=== PATIENT | female | born 1960 | race Caucasian/White ===

== ENCOUNTER → 2017-04-04 | Outpatient (REF) | payer OTHER ==
[2017-04-04 13:17] LABS: BASO # 0.1 10^3/uL (0.0-0.2); BASO % 0.9 % (0.0-1.0); EOS # 0.2 10^3/uL (0.0-0.50); EOS % 1.5 % (0.0-3.0); HEMOGLOBIN 13.5 g/dl (12.0-16.0); IMMATURE GRANULOCYTE # 0.1 10^3/uL (0-0); IMMATURE GRANULOCYTE % 0.8 % (0-0); LYMPH # 3.2 10^3/uL (1.5-4.5); LYMPH % 27.7 % (24.0-44.0); MEAN CORPUSCULAR HEMOGLOBIN 29.7 pg (27.0-33.0); MEAN CORPUSCULAR HGB CONC 32.1 g/dl (32.0-36.5); MEAN CORPUSCULAR VOLUME 92.3 fl (80.0-96.0); MONO # 0.9 10^3/uL (0.0-0.8); MONO % 7.6 % (0.0-5.0); NEUTROPHILS # 7.2 10^3/uL (1.8-7.7); NEUTROPHILS % 61.5 % (36.0-66.0); PLATELET COUNT, AUTOMATED 392 10^3/uL (150-450); RED BLOOD COUNT 4.55 10^6/uL (4.00-5.40); RED CELL DISTRIBUTION WIDTH 12.9 % (11.5-14.5); WHITE BLOOD COUNT 11.7 10^3/uL (4.0-10.0)
[2017-04-04 13:42] LABS: ALBUMIN 4.1 GM/DL (3.2-5.2); ALBUMIN/GLOBULIN RATIO 1.37 (1.00-1.93); ALKALINE PHOSPHATASE 88 U/L (45-117); ALT/SGPT 31 U/L (12-78); AMYLASE 37 U/L (25-115); ANION GAP 10 MEQ/L (8-16); AST/SGOT 18 U/L (7-37); BILIRUBIN,TOTAL 0.3 MG/DL (0.2-1.0); BLOOD UREA NITROGEN 8 MG/DL (7-18); CALCIUM LEVEL 9.6 MG/DL (8.5-10.1); CARBON DIOXIDE LEVEL 27 MEQ/L (21-32); CHLORIDE LEVEL 105 MEQ/L (98-107); CREATININE FOR GFR 0.61 MG/DL (0.55-1.02); GLOMERULAR FILTRATION RATE > 60.0 (>51); GLUCOSE, FASTING 86 MG/DL (70-105); LIPASE 119 U/L (73-393); SODIUM LEVEL 142 MEQ/L (136-145); TOTAL PROTEIN 7.1 GM/DL (6.4-8.2)
== END ==
LOC: M SFHCCLAY 08:14
DX: R19.7 Diarrhea, unspecified (principal)

== ENCOUNTER → 2019-03-19 | Outpatient (CLI) | payer BC ==
--- NOTE | 2019-03-19 15:46 | REP ---
Clinical: Solitary pulmonary nodule. Technique: Axial noncontrast images from the thoracic inlet to the upper abdomen with coronal and sagittal re-formations. Comparison: None available. Findings: A subtle nodular density measuring approximately 1.8 cm at the right lung base inseparable from the diaphragmatic surface is suggested. Remainder of lung tello are clear. No further consolidation, nodule or mass. No pleural effusion. Tracheobronchial tree is patent. No obvious adenopathy. Mediastinum demonstrates normal thoracic aorta, pulmonary vasculature and heart/pericardium. Surrounding musculoskeletal structures are intact. Impression: Subtle nodular density at the right base is suspected. No prior examination is available for comparison. Electronically Signed by Canelo Parker MD 03/19/2019 03:38 P
== END ==
LOC: M RAD 14:01
PROVIDERS: ATTEND Internal Medicine Pulmonary Disease
DX: R91.1 Solitary pulmonary nodule (principal)

== ENCOUNTER → 2019-04-13 | Outpatient (CLI) | payer BC ==
--- NOTE | 2019-04-21 09:47 | REP ---
PET/CT: History: Solitary pulmonary nodule. This study is acquired on April 13, 2019 and is presented to me for interpretation on April 21, 2019. The reason for the delay is not known. Comparisons: Comparison chest CT study March 19, 2019 and March 04, 2019. TECHNIQUE: 58 minutes following the intravenous injection of a 8.20 mCi dose of F-18 FDG, three-dimensional PET scintigraphy is acquired from the skull base to the proximal thighs. Triplanar noncontrast CT scanning is acquired through the same anatomic range for attenuation correction, and image registration with scan parameters optimized to minimize radiation exposure to the patient. PET scintigraphy and CT datasets were fused and displayed on a workstation with multiplanar and projection display capability. PET/CT Findings: The spiculated nodule seen on recent CT study in the right lower lobe is hypermetabolic. Maximum standard uptake value within it is 3.17. There is no other abnormal pulmonary parenchymal hypermetabolic uptake. No hilar or mediastinal hypermetabolic uptake is seen. In the abdomen and pelvis there is normal hepatic, splenic, gastrointestinal, and genitourinary FDG accumulation. No abnormal adrenal uptake is seen. No abnormal abdominal or pelvic uptake is observed. Head and neck soft tissues are unremarkable. Impression: The spiculated nodule in the right lower lobe is mildly hypermetabolic, maximum S U V value 3.17. No other abnormal hypermetabolic uptake is appreciated. Electronically Signed by Otoniel Ulloa MD 04/21/2019 09:40 A
== END ==
LOC: M PLARAD 09:25
PROVIDERS: ATTEND Internal Medicine Pulmonary Disease
DX: R91.1 Solitary pulmonary nodule (principal)
CPT/HCPCS: 78815; A9552

== ENCOUNTER → 2019-06-03 | Outpatient (CLI) | payer BC ==
[~2019-06-03] MED LIST: ADVI200T17 PO; ATIV1TAB10 PO; ATOR1TAB21 PO; CELE40TA PO; GABA-1171 PO; NICO14DI3 TOP; PRIL20TA2 PO; VITA50005 PO; WELLTAB38 PO; [UNRECOGNIZED DRUG - OTHER] PO
[2019-06-03 11:26] LABS: HEMATOCRIT 39.3 % (36.0-47.0); HEMOGLOBIN 12.9 g/dl (12.0-15.5); MEAN CORPUSCULAR HEMOGLOBIN 30.7 pg (27.0-33.0); MEAN CORPUSCULAR HGB CONC 32.8 g/dl (32.0-36.5); MEAN CORPUSCULAR VOLUME 93.6 fl (80.0-96.0); PLATELET COUNT, AUTOMATED 348 10^3/uL (150-450); WHITE BLOOD COUNT 9.9 10^3/uL (4.0-10.0)
[2019-06-03 11:29] LABS: ABG BASE EXCESS -0.4 (-2.0-2.0); ABG HCO3 23.1 MEQ/L (22.0-26.0); ABG O2 SATURATION 96.7 % (95.0-99.0); ABG PARTIAL PRESSURE CO2 34.1 mmHg (35.0-45.0); ABG STANDARD HCO3 24.1 MEQ/L (22.0-26.0); ABG TOTAL CO2 24.1 MEQ/L (22.0-29.0); ABG pH (ARTERIAL) 7.448 UNITS (7.350-7.450)
[2019-06-03 11:37] LABS: INR 0.95; PROTHROMBIN TIME 12.4 SECONDS (11.8-14.0)
[2019-06-03 11:38] LABS: PARTIAL THROMBOPLASTIN TIME 29.5 SECONDS (25.0-38.4)
[2019-06-03 11:54] LABS: BLOOD UREA NITROGEN 21 MG/DL (7-18); CALCIUM LEVEL 9.3 MG/DL (8.5-10.1); CARBON DIOXIDE LEVEL 30 MEQ/L (21-32); CHLORIDE LEVEL 107 MEQ/L (98-107); CREATININE FOR GFR 0.77 MG/DL (0.55-1.30); GLOMERULAR FILTRATION RATE > 60.0 (>51); GLUCOSE, FASTING 83 MG/DL (70-100); POTASSIUM SERUM 4.3 MEQ/L (3.5-5.1); SODIUM LEVEL 139 MEQ/L (136-145)
--- NOTE | 2019-06-03 12:59 | REP ---
CHEST X-RAY: TWO VIEWS. HISTORY: Right lobe abnormality. COMPARISON STUDY: Chest CT study March 19, 2019. FINDINGS: The lungs are symmetrically aerated. Pleural angles are sharp. Heart is not enlarged. There are degenerative changes in the thoracic spine. Pulmonary vasculature is not increased. No new infiltrate is seen. The known spiculated density in the right lower lobe above the right diaphragm is just barely visible on the PA view. It is better seen on CT scanning. IMPRESSION: The right lower lobe opacity seen on recent CT study is just visible on the PA view. Otherwise no active disease. Electronically Signed by Otoniel Ulloa MD 06/03/2019 01:13 P
--- NOTE | 2019-06-05 00:38 | ECGEPIP ---
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
== END ==
LOC: M ADMPAT 10:43
PROVIDERS: ATTEND Thoracic Surgery (Cardiothoracic Vascular Surgery)
DX: R91.8 Other nonspecific abnormal finding of lung field (principal)

== ENCOUNTER 2019-06-08 07:22 | Inpatient (IN) | payer BC ==
[2019-06-08] VITALS (26 sets, daily range): BP systolic 93–153; BP diastolic 56–82
[~2019-06-08] VITALS: Ht 157.5 cm; Wt 75.1 kg
[~2019-06-08 07:22] MED LIST changes: +ACETAMINOPHEN 1000MG 100ML IV BTL (OFIRMEV) (J0131 PER 10MG) As Ordered ONE; +KETOROLAC 60 MG/2 ML VIAL (J1885) As Ordered ONE; +LIDOCAINE 1% MDV 20ML VIAL SQ PRN; +LIDOCAINE 2% INJ 100 MG/5 ML SDV (FOR ANES.) As Ordered ONE; +LR 1,000 ML IV ONE; +MUPIROCIN 2% OINT 22 GM TUBE TOP ONE; +ONDANSETRON 4MG/2ML VIAL (J2405) As Ordered ONE; +ROCURONIUM BROMIDE 50 MG/5 ML VIAL As Ordered ONE; +VANCOMYCIN HCL 1,000 MG, VIAL MATE ADAPTER 1 EACH in D5W 250 ML IV ONE; +dexameTHASONE 4 MG/ML 1ML VIAL (J1100) As Ordered ONE; +propofoL 200 MG/20 ML VIAL As Ordered ONE
[2019-06-08] MEDS ORDERED: BUPIVACAINE LIPOSOME/PF 1.3% 20ML VIAL (13.3MG/ML)(EXPAREL)(C9290 PER1MG) As Ordered ONE (07:23)
[2019-06-08] MEDS ORDERED: MUPIROCIN 2% OINT 22 GM TUBE As Ordered ONE (07:23)
[2019-06-08] MEDS ORDERED: BUPIVACAINE HCL 0.5% 10ML VIAL As Ordered ONE (07:23)
[2019-06-08] MEDS ORDERED: CETACAINE SPRAY 5GM As Ordered ONE (07:44)
[2019-06-08] MEDS ORDERED: fentaNYL 100 MCG/2 ML INJECTION (J3010) As Ordered ONE (08:59)
[2019-06-08] MEDS ORDERED: MIDAZOLAM INJ 2 MG/2 ML VIAL (J2250) As Ordered ONE ×2 (08:59→10:12)
[2019-06-08] MEDS: MIDAZOLAM INJ 2 MG/2 ML VIAL (J2250) IV SCH ×2 (09:04→09:09)
[2019-06-08] MEDS: fentaNYL 100 MCG/2 ML INJECTION (J3010) IV SCH ×2 (09:04→09:15)
[2019-06-08] MEDS ORDERED: fentaNYL 250 MCG/5 ML INJECTION (J3010) As Ordered ONE (09:42)
[2019-06-08] MEDS ORDERED: METOCLOPRAMIDE INJ 10MG/2ML VIAL (J2765) IV PRN ×2 (10:00→14:30)
[2019-06-08] MEDS ORDERED: WALLBOXKEY XX PRN (10:00)
[2019-06-08] MEDS ORDERED: FENTANYL/BUPIVACAINE/NACL BAG 250 ML EPIDURAL SCH (10:00)
[2019-06-08] MEDS ORDERED: EPIDURAL/PCA KEYS XX PRN (10:00)
[2019-06-08] MEDS ORDERED: NALOXONE INJ 0.4 MG/1 ML VIAL (J2310) IV PRN (10:00)
[2019-06-08] MEDS ORDERED: ONDANSETRON 4MG/2ML VIAL (J2405) IV PRN ×3 (10:00→14:30)
[2019-06-08] MEDS ORDERED: BUPIVACAINE HCL 0.25% 30ML VIAL As Ordered ONE (10:43)
[2019-06-08] MEDS ORDERED: ROCURONIUM BROMIDE 50 MG/5 ML VIAL As Ordered ONE ×2 (11:02→12:41)
[2019-06-08] MEDS ORDERED: SUGAMMADEX SODIUM 500 MG/5 ML VIAL (BRIDION) As Ordered ONE (12:02)
[2019-06-08] MEDS ORDERED: PHENYLephrine HCL 500 MCG/5 ML (100MCG/ML) SYRINGE (J2370) As Ordered ONE (12:03)
[2019-06-08] MEDS ORDERED: HYDROmorphone HCL 2 MG/ML 1ML VIAL (J1170) As Ordered ONE (12:43)
[2019-06-08 13:21] LABS: APPEARANCE, URINE CLEAR (CLEAR); BILIRUBIN, URINE AUTO NEGATIVE (NEGATIVE); BLOOD, URINE BLOOD NEGATIVE (NEGATIVE); COLOR, URINE YELLOW (YELLOW); GLUCOSE, URINE (UA) AUTO NEGATIVE (NEGATIVE); KETONE, URINE AUTO NEGATIVE (NEGATIVE); LEUKOCYTE ESTERASE, URINE AUTO NEGATIVE (NEGATIVE); NITRITE, URINE AUTO NEGATIVE (NEGATIVE); PROTEIN, URINE AUTO NEGATIVE (NEGATIVE); UROBILINOGEN, URINE AUTO 0.2 mg/dL (0.0-2.0)
[2019-06-08 13:22] LABS: RBC, URINE AUTO 0 /HPF (0-3); SQUAMOUS EPITHELIAL CELL UR AU 0 /HPF (0-6); WBC, URINE AUTO 0 /HPF (0-3)
[2019-06-08 13:23] LABS: BACTERIA, URINE AUTO NEGATIVE (NEGATIVE)
[2019-06-08] MEDS ORDERED: ACETAMINOPHEN TAB 650MG DOSE (2X325MG) PO PRN (14:15)
[2019-06-08] MEDS ORDERED: LEVALBUTEROL 1.25 MG/0.5 ML CONCENTRATE NEB NEB PRN (14:15)
[2019-06-08] MEDS ORDERED: BISACODYL 10 MG SUPP PR PRN (14:15)
[2019-06-08] MEDS ORDERED: MEPERIDINE INJ 25 MG/ML VIAL (J2175) IV PRN (14:30)
[2019-06-08] MEDS ORDERED: fentaNYL 100 MCG/2 ML INJECTION (J3010) IV PRN (14:30)
[2019-06-08] MEDS ORDERED: oxyCODONE 5MG TAB PO PRN (14:30)
[2019-06-08] MEDS ORDERED: LR 1,000 ML IV SCH (14:30)
--- NOTE | 2019-06-08 14:41 | REP ---
Clinical: Status post right lower lobe resection. Findings: Two right-sided chest tubes are identified along with postsurgical changes and mild volume loss. No obvious pneumothorax. The cardiac silhouette is normal. Left hemithorax appears clear. The skeletal structures are grossly intact. Impression: Postsurgical changes involving the right hemithorax. No obvious pneumothorax. Electronically Signed by Canelo Parker MD 06/08/2019 02:33 P
[2019-06-08 14:49] LABS: ABG BASE EXCESS -2.9 (-2.0-2.0); ABG HCO3 23.7 MEQ/L (22.0-26.0); ABG O2 SATURATION 95.7 % (95.0-99.0); ABG PARTIAL PRESSURE CO2 48.8 mmHg (35.0-45.0); ABG PARTIAL PRESSURE O2 85.7 mmHg (75.0-100.0); ABG TOTAL CO2 25.2 MEQ/L (22.0-29.0); ABG pH (ARTERIAL) 7.305 UNITS (7.350-7.450)
[2019-06-08] MEDS ORDERED: KCL 20MEQ IN D5/NS 1000ML 1,000 ML IV SCH (15:00)
[2019-06-08 15:08] LABS: BASO # 0.1 10^3/uL (0.0-0.2); BASO % 0.4 % (0.0-1.0); EOS % 0.1 % (0.0-3.0); HEMATOCRIT 36.9 % (36.0-47.0); HEMOGLOBIN 12.2 g/dl (12.0-15.5); LYMPH # 1.2 10^3/uL (1.5-5.0); LYMPH % 5.5 % (24.0-44.0); MEAN CORPUSCULAR HEMOGLOBIN 30.4 pg (27.0-33.0); MEAN CORPUSCULAR HGB CONC 33.1 g/dl (32.0-36.5); MONO # 0.6 10^3/uL (0.0-0.8); MONO % 2.6 % (0.0-5.0); NEUTROPHILS # 19.4 10^3/uL (1.5-8.5); NEUTROPHILS % 90.6 % (36.0-66.0); PLATELET COUNT, AUTOMATED 345 10^3/uL (150-450); RED BLOOD COUNT 4.01 10^6/uL (4.00-5.40); WHITE BLOOD COUNT 21.4 10^3/uL (4.0-10.0)
[2019-06-08 15:24] LABS: BLOOD UREA NITROGEN 16 MG/DL (7-18); CALCIUM LEVEL 8.4 MG/DL (8.5-10.1); CARBON DIOXIDE LEVEL 27 MEQ/L (21-32); CHLORIDE LEVEL 106 MEQ/L (98-107); CREATININE FOR GFR 0.69 MG/DL (0.55-1.30); GLOMERULAR FILTRATION RATE > 60.0 (>51); GLUCOSE, FASTING 127 MG/DL (70-100); POTASSIUM SERUM 4.1 MEQ/L (3.5-5.1); SODIUM LEVEL 138 MEQ/L (136-145)
[2019-06-08] MEDS: LIDOCAINE 5% (LIDODERM) PATCH TD SCH (17:38)
[2019-06-08] MEDS: KETOROLAC 30 MG/ML VIAL (J1885) IV SCH ×2 (18:30→23:50)
[2019-06-08] MEDS: LEVALBUTEROL 1.25 MG/0.5 ML CONCENTRATE NEB NEB SCH ×2 (20:41→23:59)
[2019-06-08] MEDS: DOCUSATE SODIUM 100 MG CAP PO SCH (21:00)
[2019-06-08] MEDS: VANCOMYCIN HCL 1,000 MG, VIAL MATE ADAPTER 1 EACH in D5W 250 ML IV SCH (21:08)
[2019-06-08] MEDS: HEPARIN SOD (PORCINE) 5000 UNITS/ML VIAL (J1644 PER 1000UNITS) SC SCH (21:09)
[2019-06-09] VITALS (39 sets, daily range): BP systolic 75–129; BP diastolic 42–87
[2019-06-09] MEDS: diphenhydrAMINE INJ 50MG/ML VIAL (J1200) IV PRN ×4 (03:28→22:58)
[2019-06-09] MEDS: BUPIVACAINE/NACL BAG 250 ML EPIDURAL SCH ×2 (04:00→23:09)
[2019-06-09] MEDS: KETOROLAC 30 MG/ML VIAL (J1885) IV SCH ×3 (05:11→18:41)
[2019-06-09 06:34] LABS: ABG BASE EXCESS 1.9 (-2.0-2.0); ABG HCO3 26.1 MEQ/L (22.0-26.0); ABG O2 SATURATION 98.9 % (95.0-99.0); ABG PARTIAL PRESSURE O2 136.8 mmHg (75.0-100.0); ABG STANDARD HCO3 26.2 MEQ/L (22.0-26.0); ABG TOTAL CO2 27.3 MEQ/L (22.0-29.0); ABG pH (ARTERIAL) 7.443 UNITS (7.350-7.450)
[2019-06-09 07:06] LABS: BASO # 0.1 10^3/uL (0.0-0.2); BASO % 0.3 % (0.0-1.0); EOS % 0.1 % (0.0-3.0); HEMOGLOBIN 10.9 g/dl (12.0-15.5); LYMPH # 3.3 10^3/uL (1.5-5.0); LYMPH % 23.3 % (24.0-44.0); MEAN CORPUSCULAR HEMOGLOBIN 30.7 pg (27.0-33.0); MONO # 1.2 10^3/uL (0.0-0.8); NEUTROPHILS # 9.7 10^3/uL (1.5-8.5); NEUTROPHILS % 67.7 % (36.0-66.0); PLATELET COUNT, AUTOMATED 269 10^3/uL (150-450); RED BLOOD COUNT 3.55 10^6/uL (4.00-5.40); WHITE BLOOD COUNT 14.3 10^3/uL (4.0-10.0)
[2019-06-09 07:31] LABS: BLOOD UREA NITROGEN 10 MG/DL (7-18); CALCIUM LEVEL 8.3 MG/DL (8.5-10.1); CARBON DIOXIDE LEVEL 26 MEQ/L (21-32); CHLORIDE LEVEL 103 MEQ/L (98-107); CREATININE FOR GFR 0.57 MG/DL (0.55-1.30); GLOMERULAR FILTRATION RATE > 60.0 (>51); GLUCOSE, FASTING 95 MG/DL (70-100); POTASSIUM SERUM 4.1 MEQ/L (3.5-5.1); SODIUM LEVEL 136 MEQ/L (136-145)
[2019-06-09] MEDS: LEVALBUTEROL 1.25 MG/0.5 ML CONCENTRATE NEB NEB SCH ×3 (07:32→19:45)
[2019-06-09] MEDS: PERCOCET 5MG/325MG TAB PO PRN ×5 (08:11→22:42)
[2019-06-09] MEDS: MOM 30ML SUSPENSION UDC PO SCH (09:00)
--- NOTE | 2019-06-09 09:03 | REP ---
Clinical: Status post right lower lobe resection. Technique: PA and lateral. Comparison: 06/08/2019. Findings: Postsurgical changes involving the right hemithorax with right basilar atelectasis and elevation to the right hemidiaphragm. Right chest tube in stable position. Left hemithorax appears clear and within normal limits. Visualized mediastinum and cardiac silhouette appear normal. Impression: Postsurgical changes involving the right hemithorax with volume loss, mild right basilar atelectasis. Electronically Signed by Canelo Parker MD 06/09/2019 08:54 A
[2019-06-09] MEDS: VANCOMYCIN HCL 1,000 MG, VIAL MATE ADAPTER 1 EACH in D5W 250 ML IV SCH ×2 (09:34→20:28)
[2019-06-09] MEDS: PANTOPRAZOLE 40MG TAB (PROTONIX) PO SCH (09:35)
[2019-06-09] MEDS: DOCUSATE SODIUM 100 MG CAP PO SCH ×2 (09:35→20:27)
[2019-06-09] MEDS: HEPARIN SOD (PORCINE) 5000 UNITS/ML VIAL (J1644 PER 1000UNITS) SC SCH ×2 (09:36→20:27)
[2019-06-09] MEDS: LIDOCAINE 5% (LIDODERM) PATCH TD SCH (09:37)
[2019-06-09] MEDS ORDERED: MORPHINE 2 MG/ML 1ML VIAL (J2270) As Ordered ONE (11:04)
[2019-06-09] MEDS ORDERED: MORPHINE 2 MG/ML 1ML VIAL (J2270) IV ONE (11:15)
[2019-06-09] MEDS ORDERED: D5W/0.9% SODIUM CHLORIDE 500 ML IV SCH (11:30)
--- NOTE | 2019-06-09 12:34 | IPN ---
DATE: 06/09/2019 This is now the first postoperative day for Mrs. Mendoza. She had a notable night for pain in her shoulder. The epidural was changed to double strength bupivacaine and I am now supplementing her pain control with narcotic analgesia, both oral and intravenously, and she is better with the intravenous intermittent morphine. Her vital signs show a maximum temperature (t-max) of 99.3 with a heart rate that ranges between 101 and 116 in a sinus rhythm, respiratory rate of 16 to 20 without the use of accessory muscles, who is 93% saturated now on room air, and whose blood pressure is ranging between 100/49 to 75/42. I have given her additional volume for her blood pressure. Her intake and output the past 24 hours has been recorded as 1696 in and 1182 out for a positivity of 500 mL. She has put out 220 mL from the chest tube and there is still a considerable air leak. In the last 12 hours, she has put out 340 mL. PHYSICAL EXAMINATION: LUNGS: Her lungs show equal breath sounds on either side with crackles in the right hemithorax. Percussion notes are full to the diaphragm. CARDIAC EXAM: Without murmurs, clicks, gallops or rubs. I cannot feel her point of maximum impulse (PMI). S1, S2 are normal. ABDOMEN: Soft, nontender. Bowel sounds positive. There is no hepatomegaly. No costovertebral angle tenderness. EXTREMITIES: Show no pretibial edema. No calf tenderness. No differential swelling of the upper extremities. SKIN: Warm, dry and perfused without cyanosis or mottling, including that of the nail beds and knees. NECK: Supple. There is no jugular venous distention. No subcutaneous emphysema. Trachea is midline. MOUTH: Shows her mucous membranes to be pink and moist. Lips and commissures without lesions. There is no thrush. EYES: Show her pupils to be equal and reactive. Extraocular motion intact. Sclerae anicteric. NEUROLOGIC: Shows II through XII intact with gross motor and gross sensation intact. Gait is not tested. PSYCHIATRIC: Shows her to be awake and alert, oriented times three with appropriate mood and affect and conversational. Her chest x-ray today shows her lung fully expanded to the chest wall with obligate volume loss from the lobectomy. The anterior chest tube looks as though it has migrated more inferiorly. I see no infiltrates. Her white count today is 14.3 with a hemoglobin and hematocrit of 10.9 and 33.0 with a platelet count of 269. Differential shows 67% neutrophils, 23% lymphocytes, 8% monocytes. There are no immature forms and no toxic granulations. Her electrolytes are normal with a BUN and creatinine of 10 and 0.57 and a glucose of 95 and a calcium of 8.3. Pathology is still pending. After dictation, I will go and look at the slides this morning. IMPRESSION: 1. Clinica stage I adenocarcinoma. 2. Prior tobacco abuse. 3. Gastroesophageal reflux disease (GERD). 4. Anxiety. 5. Hypertension secondary to the epidural. 6. Problematic pain control in her shoulder. 7. Postoperative air leak. PLAN/DISCUSSION: We are bringing her pain under control with oral and intravenous narcotics. She has no incisional pain. We will continue to encourage lung expansion therapy. For her hypertension, she may need phenylephrine.
[2019-06-09] MEDS ORDERED: PHENYLEPHRINE INJ 10MG/ML VIAL (J2370) As Ordered ONE (13:29)
[2019-06-09] MEDS ORDERED: PHENYLEPHRINE HCL INJ 50 MG in D5W 495 ML IV SCH (14:00)
[2019-06-09] MEDS: MORPHINE 2 MG/ML 1ML VIAL (J2270) IV PRN (15:26)
[2019-06-09] MEDS: ATORVASTATIN 20 MG TAB PO SCH (20:27)
[2019-06-09] MEDS: LORazepam 0.5 MG TAB PO SCH (20:27)
[2019-06-09] MEDS: CitaloPRAM (CeleXA) 20 MG TAB PO SCH (20:27)
[2019-06-10] VITALS (42 sets, daily range): BP systolic 91–137; BP diastolic 50–86
[2019-06-10] MEDS: KETOROLAC 30 MG/ML VIAL (J1885) IV SCH ×4 (00:22→17:48)
[2019-06-10] MEDS: LEVALBUTEROL 1.25 MG/0.5 ML CONCENTRATE NEB NEB SCH ×4 (01:50→19:48)
[2019-06-10] MEDS ORDERED: PHENYLEPHRINE HCL INJ 50 MG in D5W 495 ML IV SCH (02:00)
[2019-06-10 05:07] LABS: BASO # 0.1 10^3/uL (0.0-0.2); BASO % 0.9 % (0.0-1.0); EOS # 0.2 10^3/uL (0.0-0.5); EOS % 1.5 % (0.0-3.0); HEMATOCRIT 33.5 % (36.0-47.0); HEMOGLOBIN 10.7 g/dl (12.0-15.5); LYMPH # 3.4 10^3/uL (1.5-5.0); LYMPH % 21.2 % (24.0-44.0); MEAN CORPUSCULAR HEMOGLOBIN 30.4 pg (27.0-33.0); MEAN CORPUSCULAR HGB CONC 31.9 g/dl (32.0-36.5); MEAN CORPUSCULAR VOLUME 95.2 fl (80.0-96.0); MONO # 1.3 10^3/uL (0.0-0.8); MONO % 7.9 % (0.0-5.0); NEUTROPHILS # 10.9 10^3/uL (1.5-8.5); NEUTROPHILS % 67.5 % (36.0-66.0); PLATELET COUNT, AUTOMATED 297 10^3/uL (150-450); RED BLOOD COUNT 3.52 10^6/uL (4.00-5.40); WHITE BLOOD COUNT 16.2 10^3/uL (4.0-10.0)
[2019-06-10 05:27] LABS: BLOOD UREA NITROGEN 11 MG/DL (7-18); CALCIUM LEVEL 8.6 MG/DL (8.5-10.1); CARBON DIOXIDE LEVEL 26 MEQ/L (21-32); CHLORIDE LEVEL 102 MEQ/L (98-107); CREATININE FOR GFR 0.68 MG/DL (0.55-1.30); GLOMERULAR FILTRATION RATE > 60.0 (>51); GLUCOSE, FASTING 99 MG/DL (70-100); SODIUM LEVEL 136 MEQ/L (136-145)
[2019-06-10] MEDS: PERCOCET 5MG/325MG TAB PO PRN ×4 (06:13→19:57)
[2019-06-10] MEDS: DOCUSATE SODIUM 100 MG CAP PO SCH ×2 (08:29→21:45)
[2019-06-10] MEDS: PANTOPRAZOLE 40MG TAB (PROTONIX) PO SCH (08:29)
[2019-06-10] MEDS: MOM 30ML SUSPENSION UDC PO SCH (08:29)
[2019-06-10] MEDS: GABAPENTIN 100 MG CAP PO SCH (08:29)
[2019-06-10] MEDS: HEPARIN SOD (PORCINE) 5000 UNITS/ML VIAL (J1644 PER 1000UNITS) SC SCH ×2 (08:30→21:45)
[2019-06-10] MEDS: VANCOMYCIN HCL 1,000 MG, VIAL MATE ADAPTER 1 EACH in D5W 250 ML IV SCH (08:30)
[2019-06-10] MEDS: LIDOCAINE 5% (LIDODERM) PATCH TD SCH (08:30)
[2019-06-10] MEDS: NICOTINE 14 MG/24 HR TRANSDERMAL TOP SCH (08:31)
--- NOTE | 2019-06-10 09:17 | REP ---
Chest x-ray: Two views. History: Postop right lower lobectomy. Comparison chest x-ray: June 09, 2019 and June 08, 2019. Findings: The right chest tube remains in place at the base. Extrathoracic soft tissue gas is visible today along the right lateral chest wall from supraclavicular soft tissues to the right flank. There is a tiny sliver of apical pleural air believed to be visible at the right apex. There is discoid atelectasis adjacent to the chest tube in the right base. Right hemidiaphragm is elevated as before. The left lung is clear. An epidural catheter remains in place. A second right-sided chest tube remains in place medially. Impression: Tiny sliver of right apical pleural air. Extrathoracic soft tissue emphysema has developed. There is plate-like atelectasis in the right base. Electronically Signed by Otoniel Ulloa MD 06/10/2019 09:09 A
[2019-06-10] MEDS: MORPHINE 2 MG/ML 1ML VIAL (J2270) IV PRN ×3 (11:13→22:11)
--- NOTE | 2019-06-10 12:40 | IPN ---
DATE: 06/10/2019 This is now the second postoperative day for Mrs. Mendoza status post a right lower lobectomy. She is feeling a lot better today. Her pain in her shoulder is much better today. She is not experiencing any incisional pain. Her vital signs show a maximum temperature (T-max) of 98.9 with a heart rate that ranges between 111 and 93 and in sinus rhythm with a blood pressure that is ranging between 93/61 to 128/86. She required phenylephrine a lot last night and fluid boluses. Her respiratory rate is 18-20 without the use of accessory muscles and she is 94-95% saturated on 2 liters of nasal cannula. Her intake and output over the past 24 hours has been recorded as 4267 in and 2455 out for a positivity of 1800 mL. She has put out 655 mL from the chest tube and there is still a considerable air leak. Weight today is 73.5 kg compared to 72 kg the day before. She has put out 1800 in urine output. On physical examination, her right lung shows noises and squeaks consistent with air leak. The left lung shows normal vesicular sounds with some inspiratory wheezing at the very end of inspiration. Percussion note is full to the diaphragm. Her cardiac exam is without murmurs, clicks, gallops or rubs. I cannot feel her point of maximum impulse (PMI). S1 and S2 are normal. Abdomen is soft and nontender. Bowel sounds are positive. She has had flatus but no bowel movement yet. There is no hepatomegaly. No costovertebral angle (CVA) tenderness. Extremities show trace pretibial edema with no calf tenderness. No differential swelling of the upper extremities. Skin is warm, dry and perfused without cyanosis or mottling including that of the nail beds and knees. Neck is supple. There is no jugular venous distention. No subcutaneous emphysema. Trachea is midline. Mouth shows her mucous membranes to be pink and moist. Lips and commissures are without lesions. There is no thrush. Eyes show her pupils to be equal and reactive. Extraocular movements intact. Sclerae nonicteric. Neurologic shows II-XII intact along with gross motor and gross sensation intact. Gait is not tested. Psychiatric showed her to be awake, alert and oriented times three with appropriate and affect and conversational. Her white count today is 16.2 up from 14.3 yesterday. Hemoglobin and hematocrit 10.7 and 36.5, stable from yesterday with a platelet count of 297 stable. Differential shows 67% neutrophils, 71% lymphocytes, 10% monocytes. There are no immature forms or toxic granulations. Her electrolytes are normal today with a BUN and creatinine of 11 and 0.68. There are no blood gases on her today with her blood gases being almost normal yesterday. It should be noted that urinalysis preoperatively was negative for leukocyte esterase. Her chest x-ray today shows her lung fully expanded to the chest wall. There is obligate volume loss from the lobectomy. There is some subcutaneous emphysema in the lateral chest wall. Chest tube is noted in an good place, while the anterior one is a little more inferior than I would want it to be. I have gone over pathology with Dr. Rosa. It looks to be a papillary adenocarcinoma but all nodes negative. This then puts her at stage I. I have not got the exact measurements from the tumor yet so I cannot detail stage her as of yet. It is definitely going to be stage I, however. The only choice will be between stage I A and stage I B. IMPRESSION: 1. Stage I B adenocarcinoma right lower lobe. 2. Postoperative day #2 status post lower lobectomy. 3. Prior tobacco abuse. 4. Gastroesophageal reflux disease, GERD). 5. Anxiety. 6. Hypotension secondary to epidural. 7. Problematic pain control with her shoulder, improved. 8. Postoperative air leak, smaller. PLAN AND DISCUSSION: I will continue her on suction today. As she is still on phenylephrine, I will not diurese her. I will inform her and her later today of the stage.
[2019-06-10] MEDS: BUPIVACAINE/NACL BAG 250 ML EPIDURAL SCH (15:40)
[2019-06-10] MEDS: diphenhydrAMINE INJ 50MG/ML VIAL (J1200) IV PRN ×2 (16:27→21:44)
--- NOTE | 2019-06-10 16:39 | RO ---
DATE OF PROCEDURE: 06/08/2019 PREPROCEDURE DIAGNOSIS: Right lower lobe lung mass. POSTPROCEDURE DIAGNOSIS: Right lower lobe adenocarcinoma. PROCEDURE: Thoracoscopy, attempted wedge resection followed by thoracotomy, right lower lobectomy, mediastinal lymphadenectomy, five-level rib block, bronchoscopy. SURGEON: Augie Cristina MD CLIENT DEVELOPMENT MANAGER: ANESTHESIA: FINDINGS: I could not clearly make out the lesion on thoracoscopic examination and, therefore, converted to thoracotomy. The lesion was identified by palpating it and was wedged out and was found to be adenocarcinoma by frozen section. We, therefore, proceeded to undertake a right lower lobectomy and a mediastinal node dissection including the paratracheal nodes and subcarinal nodes as well as hilar nodes. She had complete fissures. There was some dissection towards the hilum of the lower lobe pulmonary artery. DESCRIPTION OF PROCEDURE: Under satisfactory general anesthesia and single-lumen tube endotracheal intubation, the bronchoscope was placed into the tracheobronchial tree. Bronchoscopy revealed a normal branching tracheobronchial tree with minimal secretions. There was quite a lot of secretions in the lower lobe basilar segment. This was suctioned aspirated. There were no endobronchial lesions. Patient was then reintubated with a double-lumen tube. Right lung was isolated, and patient was then turned into the left lateral decubitus position. She was prepped and draped in the usual sterile fashion, and a thoracotomy incision was made posterolaterally. Latissimus dorsi was divided. Serratus anterior was spared. Chest was entered through the 5th intercostal space. The complete fissure lower lobe and the confluence of fissures were complete. Attention was turned to the base on the right lower lobe, where the lesion could be palpated, isolated, and wedged out. The above findings were noted, and preparations were made to proceed with a lobectomy. The major fissure and confluence of fissures were dissected to find the lower lobe pulmonary artery. The posterior mediastinal pleura was dissected, and the posterior major fissure was completed by use of an [place] stapler. The lower lobe pulmonary artery could then be dissected out and freed up and a vascular staple placed across it. The inferior pulmonary vein was then located, and the inferior pulmonary ligament was divided. The superior pulmonary vein was also identified. Again, the posterior mediastinal pleura was dissected and freed up, and a clamp could be placed between the superior pulmonary vein and the inferior pulmonary vein. The pulmonary vein was surrounded by a vessel loop and then stapled with a vascular stapler. This then left the bronchus. The major fissure was adherent to a portion of the middle lobe. The middle lobe bronchus was identified, and eventually the major fissure was completed by use of an [place] 60 stapler. This then left the bronchus, which was then stapled with the [place] 4.8 stapling device. Bronchus was tested to 30 cm of water and was found to be intact. After completing the lobectomy, the subcarinal packet of lymph nodes was dissected and sent for separate pathological examination. Likewise, the azygos vein was divided and the superior mediastinal pleura was incised and all the paratracheal mediastinal nodes were then dissected. No mediastinal space lymphatic leak was detected. Hemostasis was achieved by use of the Harmonic scalpel to seal the lymphatics. Mediastinal space was filled with Tisseel glue as were the cut vessels and bronchus. A five-level rib block consisting of Exparel and 0.5% Marcaine was then injected. Two chest tubes were placed, #24s, curved and straights, both anteriorly and posteriorly. Pericostal sutures were placed, and the lung was reinflated. Tisseel glue was placed on the parenchymal leaks. When testing the bronchus, the parenchyma that was leaking was noted and was oversewn with running #3-0 Vicryl suture. This was to appose tissue. The extrathoracic muscles were then reapproximated by use of running #0 Vicryl suture, the subcutaneous tissues by use of #3-0 Vicryl suture, and the skin by use of #4-0 Monocryl subcuticular suture. Patient tolerated the procedure well and left the operating room in satisfactory condition for the recovery room.
[2019-06-10] MEDS: LORazepam 0.5 MG TAB PO SCH (21:45)
[2019-06-10] MEDS: CitaloPRAM (CeleXA) 20 MG TAB PO SCH (21:45)
[2019-06-10] MEDS: ATORVASTATIN 20 MG TAB PO SCH (21:45)
[2019-06-11] VITALS (11 sets, daily range): BP systolic 92–138; BP diastolic 54–80
[2019-06-11] MEDS: LEVALBUTEROL 1.25 MG/0.5 ML CONCENTRATE NEB NEB SCH ×4 (00:53→20:13)
[2019-06-11] MEDS: PERCOCET 5MG/325MG TAB PO PRN ×5 (00:57→19:55)
[2019-06-11] MEDS: KETOROLAC 30 MG/ML VIAL (J1885) IV SCH ×4 (00:57→18:07)
[2019-06-11] MEDS: diphenhydrAMINE INJ 50MG/ML VIAL (J1200) IV PRN ×4 (02:51→20:28)
[2019-06-11 04:21] LABS: BASO # 0.1 10^3/uL (0.0-0.2); BASO % 0.5 % (0.0-1.0); EOS # 0.4 10^3/uL (0.0-0.5); EOS % 2.9 % (0.0-3.0); HEMATOCRIT 30.9 % (36.0-47.0); LYMPH # 2.6 10^3/uL (1.5-5.0); LYMPH % 17.1 % (24.0-44.0); MEAN CORPUSCULAR HEMOGLOBIN 30.6 pg (27.0-33.0); MEAN CORPUSCULAR HGB CONC 32.4 g/dl (32.0-36.5); MEAN CORPUSCULAR VOLUME 94.5 fl (80.0-96.0); MONO # 1.2 10^3/uL (0.0-0.8); MONO % 8.2 % (0.0-5.0); NEUTROPHILS # 10.6 10^3/uL (1.5-8.5); NEUTROPHILS % 70.1 % (36.0-66.0); PLATELET COUNT, AUTOMATED 266 10^3/uL (150-450); RED BLOOD COUNT 3.27 10^6/uL (4.00-5.40); WHITE BLOOD COUNT 15.1 10^3/uL (4.0-10.0)
[2019-06-11 04:43] LABS: BLOOD UREA NITROGEN 11 MG/DL (7-18); CALCIUM LEVEL 8.3 MG/DL (8.5-10.1); CARBON DIOXIDE LEVEL 27 MEQ/L (21-32); CHLORIDE LEVEL 103 MEQ/L (98-107); CREATININE FOR GFR 0.65 MG/DL (0.55-1.30); GLOMERULAR FILTRATION RATE > 60.0 (>51); GLUCOSE, FASTING 104 MG/DL (70-100); POTASSIUM SERUM 4.4 MEQ/L (3.5-5.1); SODIUM LEVEL 136 MEQ/L (136-145)
[2019-06-11] MEDS ORDERED: fentaNYL 100 MCG/2 ML INJECTION (J3010) IV SCH (06:00)
[2019-06-11] MEDS ORDERED: MIDAZOLAM INJ 2 MG/2 ML VIAL (J2250) IV SCH (06:00)
--- NOTE | 2019-06-11 08:01 | REP ---
CHEST X-RAY: TWO VIEWS. HISTORY: Postop right lower lobectomy. FINDINGS: Two right-sided chest tubes remain in place at the base. There is some mild linear plate-like atelectasis in the perihilar region and base on the right. This is unchanged. Tiny sliver of apical pleural air persists on the right. There is extrathoracic soft tissue emphysema somewhat decreased from yesterday's radiograph. The left lung remains clear. An epidural catheter and monitoring electrodes are seen. IMPRESSION: No change from the previous day's radiographs. Electronically Signed by Otoniel Ulloa MD 06/11/2019 08:39 A
[2019-06-11] MEDS: GABAPENTIN 100 MG CAP PO SCH (09:03)
[2019-06-11] MEDS: DOCUSATE SODIUM 100 MG CAP PO SCH ×2 (09:04→21:57)
[2019-06-11] MEDS: MOM 30ML SUSPENSION UDC PO SCH (09:04)
[2019-06-11] MEDS: NICOTINE 14 MG/24 HR TRANSDERMAL TOP SCH (09:04)
[2019-06-11] MEDS: PANTOPRAZOLE 40MG TAB (PROTONIX) PO SCH (09:04)
[2019-06-11] MEDS: LIDOCAINE 5% (LIDODERM) PATCH TD SCH (09:05)
[2019-06-11] MEDS: HEPARIN SOD (PORCINE) 5000 UNITS/ML VIAL (J1644 PER 1000UNITS) SC SCH ×2 (09:05→21:57)
[2019-06-11] MEDS: BUPIVACAINE/NACL BAG 250 ML EPIDURAL SCH (09:17)
[2019-06-11] MEDS: MORPHINE 2 MG/ML 1ML VIAL (J2270) IV PRN ×2 (10:50→22:15)
[2019-06-11] MEDS: buPROPion **XL** TABLET 150MG (WELLBUTRIN XL) PO SCH (11:09)
[2019-06-11] MEDS ORDERED: FUROSEMIDE 40 MG/4 ML VIAL (J1940) IV ONE (11:30)
[2019-06-11] MEDS ORDERED: MIDAZOLAM INJ 2 MG/2 ML VIAL (J2250) As Ordered ONE (12:08)
[2019-06-11] MEDS ORDERED: fentaNYL 100 MCG/2 ML INJECTION (J3010) As Ordered ONE (12:08)
--- NOTE | 2019-06-11 12:22 | IPN ---
DATE: 06/11/2019 Ms. Mendoza is in a considerable amount of pain this morning. She is complaining of incisional pain and chest tube insertion site pain. She just cannot get comfortable. She has no hematuria as this looks clinically mimicking renal colic, however, she is very tender to touch just below the incision and at the chest tube insertion site. Her vital signs show a maximum temperature (T-max) of 97.9. with a heart rate that ranges between 97 and 105 in a sinus rhythm, a respiratory rate of 18 to 20 without the use of accessory muscles, who is 94% to 93% saturated on 2 liters nasal cannula and whose blood pressure is ranging between 121/73 to 109/80. Her intake and output over the past 24 hours has been recorded as 1891 in and 2210 out for a negativity of 319 mL. She has put 465 mL out the chest tube and there is still an air leak. Weight today is 74.6 kg compared to 73.6 kg yesterday. On physical examination, she has some rhonchi in the right hemithorax with normal vesicular sounds on the left. Percussion note is full to the diaphragm. Cardiac exam is without murmurs, clicks, gallops or rubs. I cannot feel her point of maximum impulse (PMI). S1 and S2 are normal. Abdomen is soft and nontender. Bowel sounds are positive. There is no hepatomegaly. There is costovertebral angle (CVA) tenderness on the right referable to the chest tubes and the incision. Her extremities show no pretibial edema and no calf tenderness. No differential swelling of the upper extremities. Skin is warm, dry and perfused without cyanosis or mottling including that of the nail beds and knees. Neck is supple. There is no jugular venous distention. No subcutaneous emphysema. Trachea is midline. Mouth shows her mucous membranes to be pink and moist. Lips and commissures are without lesions. There is no thrush. Eyes show her pupils to be equal and reactive. Extraocular movements intact. Sclerae nonicteric. Neurologic shows II-XII intact along with gross motor and gross sensation intact. Gait is not tested. Psychiatric showed her to be awake, alert and oriented times three with appropriate and affect and conversational. Her white count today is 15.1 which is down from 16.2 yesterday. Hemoglobin and hematocrit are 10.0 and 30.9, slightly down from 10.7 and 33.5 yesterday, probably secondary to hemodilution. Platelet count is 266. Differential shows 70% neutrophils, 17% lymphocytes, 8% monocytes. There are no immature forms and no toxic granulations. Her chemistries today showed normal electrolytes with a BUN and creatinine of 11 and 0.61, glucose of 104 and a calcium of 8.3. Her chest x-ray today shows her lung fully expanded to the chest wall. There is some minimal subcutaneous emphysema on the lateral chest wall. The chest tube placement is unchanged. I see no infiltrates on the lateral film posteriorly. IMPRESSION: 1. Stage I A3 adenocarcinoma right lobe, [id number], which maps to Stage I A3. 2. Postoperative day #3 status post right lower lobectomy. 3. Prior tobacco abuse. 4. Gastroesophageal reflux disease, (GERD). 5. Anxiety. 6. Hypotension secondary to epidural 7. Problematic pain control, now in her incision site. 8. Postoperative air leak, continuing. PLAN AND DISCUSSION: I have asked anesthesia to reevaluate her epidural. She is having considerable pain at the incision site and I suspect the epidural has slipped. I will continue her on suction today. I will gently diurese her.
[2019-06-11] MEDS: ATORVASTATIN 20 MG TAB PO SCH (21:57)
[2019-06-11] MEDS: LORazepam 0.5 MG TAB PO SCH (21:57)
[2019-06-11] MEDS: CitaloPRAM (CeleXA) 20 MG TAB PO SCH (21:57)
[2019-06-12] VITALS (12 sets, daily range): BP systolic 102–160; BP diastolic 56–95
[2019-06-12] MEDS: KETOROLAC 30 MG/ML VIAL (J1885) IV SCH ×4 (00:07→17:09)
[2019-06-12] MEDS: PERCOCET 5MG/325MG TAB PO PRN ×6 (00:08→20:12)
[2019-06-12] MEDS: LEVALBUTEROL 1.25 MG/0.5 ML CONCENTRATE NEB NEB SCH ×4 (00:16→20:06)
[2019-06-12] MEDS: MORPHINE 2 MG/ML 1ML VIAL (J2270) IV PRN ×3 (04:54→21:22)
[2019-06-12 04:56] LABS: BASO # 0.1 10^3/uL (0.0-0.2); BASO % 0.7 % (0.0-1.0); EOS # 0.4 10^3/uL (0.0-0.5); EOS % 3.7 % (0.0-3.0); HEMATOCRIT 27.9 % (36.0-47.0); HEMOGLOBIN 9.3 g/dl (12.0-15.5); LYMPH # 2.5 10^3/uL (1.5-5.0); LYMPH % 21.3 % (24.0-44.0); MEAN CORPUSCULAR HEMOGLOBIN 30.7 pg (27.0-33.0); MEAN CORPUSCULAR HGB CONC 33.3 g/dl (32.0-36.5); MEAN CORPUSCULAR VOLUME 92.1 fl (80.0-96.0); MONO % 8.7 % (0.0-5.0); NEUTROPHILS # 7.6 10^3/uL (1.5-8.5); NEUTROPHILS % 63.9 % (36.0-66.0); PLATELET COUNT, AUTOMATED 230 10^3/uL (150-450); RED BLOOD COUNT 3.03 10^6/uL (4.00-5.40); WHITE BLOOD COUNT 11.9 10^3/uL (4.0-10.0)
[2019-06-12 05:02] LABS: BLOOD UREA NITROGEN 10 MG/DL (7-18); CALCIUM LEVEL 8.9 MG/DL (8.5-10.1); CARBON DIOXIDE LEVEL 27 MEQ/L (21-32); CHLORIDE LEVEL 103 MEQ/L (98-107); CREATININE FOR GFR 0.64 MG/DL (0.55-1.30); GLOMERULAR FILTRATION RATE > 60.0 (>51); GLUCOSE, FASTING 97 MG/DL (70-100); SODIUM LEVEL 135 MEQ/L (136-145)
--- NOTE | 2019-06-12 08:47 | REP ---
Clinical: Status post right lower lobe resection. Technique: PA and lateral. Comparison: 06/11/2019, 06/10/2019. Findings: Postsurgical pleuroparenchymal changes involving the right hemithorax are similar to prior examination including elevation to the right hemidiaphragm, elements of presumed atelectasis, and small amounts of subcutaneous emphysema. Right chest tubes in stable position. Left hemithorax is stable. Visualized portions of the cardiac silhouette are normal. Skeletal structures are grossly intact. Impression: Postsurgical pleuroparenchymal changes involving the right hemithorax similar to prior examination. No obvious new acute process identified. Electronically Signed by Canelo Parker MD 06/12/2019 08:39 A
[2019-06-12] MEDS: NICOTINE 14 MG/24 HR TRANSDERMAL TOP SCH (09:05)
[2019-06-12] MEDS: HEPARIN SOD (PORCINE) 5000 UNITS/ML VIAL (J1644 PER 1000UNITS) SC SCH ×2 (09:06→20:12)
[2019-06-12] MEDS: LIDOCAINE 5% (LIDODERM) PATCH TD SCH (09:06)
[2019-06-12] MEDS: GABAPENTIN 100 MG CAP PO SCH (09:07)
[2019-06-12] MEDS: buPROPion **XL** TABLET 150MG (WELLBUTRIN XL) PO SCH (09:07)
[2019-06-12] MEDS: PANTOPRAZOLE 40MG TAB (PROTONIX) PO SCH (09:07)
[2019-06-12] MEDS: DOCUSATE SODIUM 100 MG CAP PO SCH ×2 (09:07→20:04)
[2019-06-12] MEDS: MOM 30ML SUSPENSION UDC PO SCH (09:07)
[2019-06-12] MEDS: NORCO, ANEXSIA 5/325MG TABLET (HYDROcodone/ACETAMINOPHEN) PO PRN (09:20)
[2019-06-12] MEDS ORDERED: NS 1,000 ML IV SCH (09:47)
[2019-06-12] MEDS ORDERED: LIDOCAINE 2% INJ 100 MG/5 ML SYRINGE IV STA (09:54)
[2019-06-12] MEDS ORDERED: LIDOCAINE 2% MDV 20 ML VIAL As Ordered ONE (09:56)
[2019-06-12] MEDS ORDERED: diphenhydrAMINE INJ 50MG/ML VIAL (J1200) IV PRN (10:00)
[2019-06-12] MEDS ORDERED: NALOXONE INJ 0.4 MG/1 ML VIAL (J2310) IV PRN (10:00)
[2019-06-12] MEDS ORDERED: EPIDURAL/PCA KEYS XX PRN (10:00)
[2019-06-12] MEDS ORDERED: NALBUPHINE HCL 10 MG/ML AMP (J2300) IV PRN (10:00)
[2019-06-12] MEDS ORDERED: MORPHINE 1MG/ML IN 0.9% NACL 100ML IV BAG IV PRN (10:00)
[2019-06-12] MEDS ORDERED: ONDANSETRON 4MG/2ML VIAL (J2405) IV PRN (10:00)
[2019-06-12] MEDS: BUPIVACAINE/NACL BAG 250 ML EPIDURAL SCH ×2 (11:56→20:27)
[2019-06-12] MEDS: diphenhydrAMINE INJ 50MG/ML VIAL (J1200) IV PRN ×2 (12:09→21:29)
[2019-06-12] MEDS: CitaloPRAM (CeleXA) 20 MG TAB PO SCH (20:10)
[2019-06-12] MEDS: ATORVASTATIN 20 MG TAB PO SCH (20:13)
[2019-06-12] MEDS: LORazepam 0.5 MG TAB PO SCH (20:13)
[2019-06-12] MEDS ORDERED: LIDOCAINE 2% INJ 100 MG/5 ML SDV (FOR ANES.) As Ordered ONE (22:23)
[2019-06-12] MEDS: FENTANYL/BUPIVACAINE BAG 250 ML EPIDURAL SCH (23:51)
[2019-06-13] VITALS (12 sets, daily range): BP systolic 99–129; BP diastolic 55–79
[2019-06-13] MEDS: LEVALBUTEROL 1.25 MG/0.5 ML CONCENTRATE NEB NEB SCH ×4 (00:44→19:48)
[2019-06-13] MEDS: KETOROLAC 30 MG/ML VIAL (J1885) IV SCH ×4 (00:44→20:07)
[2019-06-13 04:55] LABS: BASO # 0.1 10^3/uL (0.0-0.2); BASO % 0.7 % (0.0-1.0); EOS # 0.4 10^3/uL (0.0-0.5); EOS % 4.1 % (0.0-3.0); HEMATOCRIT 26.9 % (36.0-47.0); HEMOGLOBIN 8.8 g/dl (12.0-15.5); LYMPH # 2.5 10^3/uL (1.5-5.0); LYMPH % 24.3 % (24.0-44.0); MEAN CORPUSCULAR HEMOGLOBIN 30.3 pg (27.0-33.0); MEAN CORPUSCULAR HGB CONC 32.7 g/dl (32.0-36.5); MEAN CORPUSCULAR VOLUME 92.8 fl (80.0-96.0); MONO % 9.6 % (0.0-5.0); NEUTROPHILS # 6.2 10^3/uL (1.5-8.5); NEUTROPHILS % 59.7 % (36.0-66.0); PLATELET COUNT, AUTOMATED 338 10^3/uL (150-450); WHITE BLOOD COUNT 10.4 10^3/uL (4.0-10.0)
[2019-06-13 05:13] LABS: BLOOD UREA NITROGEN 8 MG/DL (7-18); CALCIUM LEVEL 8.5 MG/DL (8.5-10.1); CARBON DIOXIDE LEVEL 27 MEQ/L (21-32); CHLORIDE LEVEL 106 MEQ/L (98-107); CREATININE FOR GFR 0.59 MG/DL (0.55-1.30); GLOMERULAR FILTRATION RATE > 60.0 (>51); GLUCOSE, FASTING 95 MG/DL (70-100); POTASSIUM SERUM 4.6 MEQ/L (3.5-5.1); SODIUM LEVEL 138 MEQ/L (136-145)
[2019-06-13] MEDS: diphenhydrAMINE INJ 50MG/ML VIAL (J1200) IV PRN ×4 (05:54→20:12)
--- NOTE | 2019-06-13 07:53 | REP ---
Clinical: Status post right lower lobe resection. Technique: PA and lateral. Comparison: 06/12/2019, 06/11/2019. Findings: Two right-sided chest tubes and postsurgical pleuroparenchymal changes are similar to prior examination with suggestions for mild improvement . Small residual amount of subcutaneous emphysema also identified. No new acute process noted. Left hemithorax is relatively clear. Visualized portions of the mediastinum and cardiac silhouette are stable within normal limits. Impression: Postsurgical changes involving the right hemithorax suggest mild improvement without new acute findings appreciated. Electronically Signed by Canelo Parker MD 06/13/2019 07:45 A
[2019-06-13] MEDS: DOCUSATE SODIUM 100 MG CAP PO SCH ×2 (08:13→21:00)
[2019-06-13] MEDS: MOM 30ML SUSPENSION UDC PO SCH (08:13)
[2019-06-13] MEDS: GABAPENTIN 100 MG CAP PO SCH (08:23)
[2019-06-13] MEDS: buPROPion **XL** TABLET 150MG (WELLBUTRIN XL) PO SCH (08:23)
[2019-06-13] MEDS: PANTOPRAZOLE 40MG TAB (PROTONIX) PO SCH (08:23)
[2019-06-13] MEDS: HEPARIN SOD (PORCINE) 5000 UNITS/ML VIAL (J1644 PER 1000UNITS) SC SCH ×2 (08:23→20:06)
[2019-06-13] MEDS: NICOTINE 14 MG/24 HR TRANSDERMAL TOP SCH (08:24)
[2019-06-13] MEDS: LIDOCAINE 5% (LIDODERM) PATCH TD SCH (08:24)
--- NOTE | 2019-06-13 08:27 | IPN ---
DATE: 06/12/2019 This is now the fourth postoperative day for Mrs. Mendoza status post a right lower lobectomy. There was considerable pain control issues starting in the morning around 3-o'clock where Dr. Corrales was called of anesthesia and by report elected to put off seeing the patient until the day shift came in. I asked Dr. Lucas to see her as soon as I got to the hospital and he came up and redid the connections of the epidural, re-bolused her and she looks to be in much less pain now. Her vital signs show a maximum temperature (T-max) of 98.2 with a heart rate that ranges between 109 and 97 in sinus rhythm, respiratory rate of 18-22 without the use of accessory muscles who is 93 to 95% saturated on room air and whose blood pressure is ranging between 148/95 to 117/66. Her intake and output over the past 24 hours has been recorded as 2337 in and 2841 out for a negativity of 500 mL. She put out 351 mL from the chest tube. Her weight is pending today. She put out 2510 mL in urine output. She still has an air leak, although albeit much smaller. On physical examination, her left lung shows normal vesicular sounds with the right lung showing squeaks consistent with an air leak and some inspiratory rales at the base. Percussion note is full to the diaphragm. Cardiac exam is without murmurs, clicks, gallops or rubs. I cannot feel her point of maximum impulse (PMI). S1 and S2 are normal. Abdomen is soft and nontender. Bowel sounds are positive. There is no hepatomegaly. There is costovertebral angle (CVA) tenderness on the right referable to her incision. Extremities show no pretibial edema with no calf tenderness. No differential swelling of the upper extremities. Skin is warm, dry and perfused without cyanosis or mottling including that of the nail beds and knees. Neck is supple. There is no jugular venous distention. No subcutaneous emphysema. Trachea is midline. Mouth shows her mucous membranes to be pink and moist. Lips and commissures are without lesions. There is no thrush. Eyes show her pupils to be equal and reactive. Extraocular movements intact. Sclerae nonicteric. Neurologic shows II-XII intact along with gross motor and gross sensation intact. Gait is not tested. Psychiatric showed her to be awake, alert and oriented times three with appropriate and affect and conversational. Her white count today is 11.9 down from 15.1, with hemoglobin and hematocrit of 9.3 and 27.9 down from 10.0 and 30.9. Platelet count is 230 and stable and differential shows 60% neutrophils 12% lymphocytes, 8% monocytes. There are no immature forms or toxic granulations. Her chemistries show essentially normal electrolytes with BUN and creatinine of 10 and 0.64 and a glucose of 97 and a calcium of 8.9. Her chest x-ray shows her lungs fully expanded to her chest wall. There is a small amount of subcutaneous emphysema on the lateral chest wall, which is no larger and, in fact, dissipating. Chest tubes are unchanged. IMPRESSION: 1. Postoperative day #4 status post right lower lobectomy. 2. 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 3. Prior tobacco use. 4. Gastroesophageal reflux disease (GERD). 5. Anxiety. 6. Hypertension secondary to epidural resolved. 7. Problematic pain control continuing. Anesthesia has seen her. 8. Postoperative air leak continuing. PLAN/DISCUSSION: I would have diuresed her but since the epidural has been restarted, I want to see what her blood pressure will be doing. Our most pressing problem is her pain control. As noted above, I am going to hold on diuresis until we see what the effects of the epidural is going to be.
[2019-06-13] MEDS ORDERED: FUROSEMIDE 40 MG/4 ML VIAL (J1940) IV ONE (09:30)
--- NOTE | 2019-06-13 11:27 | IPN ---
DATE: 06/13/2019 This is now the fifth postoperative day for Mrs. Mendoza. Last night again, she had pain control problems. Anesthesia came to see her and changed her from bupivacaine to fentanyl and bupivacaine and she is feeling much better today. Her vital signs show a maximum temperature (T-max) of 98.2 with a heart rate that ranges between 101 and 91 and in sinus rhythm. Respiratory rate that is constant at 18 who is 92% saturated on 2 liters nasal cannula and has blood pressures ranging between 114/65 to 126/79. Her intake and output over the past 24 hours has been recorded as 2130 in and 3185 out with a spontaneous diuresis. She is negative for 1000 mL. She put out 450 mL from her chest tube and there is still an air leak. Her weight today is 75.1 kg, compared to 74.6 kg yesterday. I am going to diurese her today. On physical examination, both lungs show normal vesicular sounds with some inspiratory rhonchi which clear with coughing. Percussion note is full to the diaphragm. Cardiac exam is without murmurs, clicks, gallops or rubs. I cannot feel her point of maximum impulse (PMI). S1 and S2 are normal. Abdomen is soft and nontender. Bowel sounds are positive. There is no hepatomegaly. No costovertebral angle (CVA) tenderness. Extremities show no pretibial edema with no calf tenderness. No differential swelling of the upper extremities. Skin is warm, dry and perfused without cyanosis or mottling including that of the nail beds and knees. Neck is supple. There is no jugular venous distention. No subcutaneous emphysema. Trachea is midline. Mouth shows her mucous membranes to be pink and moist. Lips and commissures are without lesions. There is no thrush. Eyes show her pupils to be equal and reactive. Extraocular movements intact. Sclerae nonicteric. Neurologic shows II-XII intact along with gross motor and gross sensation intact. Gait is not tested. Psychiatric showed her to be awake, alert and oriented times three with appropriate and affect and conversational. Her white count today is 10.4 with hemoglobin and hematocrit of 8.8 and 26.9 respectively, down from 9.3 and 27.9 yesterday. Platelet count is 338 and stable and differential shows 59% neutrophils, 25% lymphocytes, 9% monocytes. There are no immature forms or toxic granulations. Her electrolytes are normal today with a BUN and creatinine of 8 and 0.59, glucose of 95 and a calcium of 8.5. Her chest x-ray today shows her lung fully expanded to her chest wall. Diaphragm has risen to accommodate the volume loss from the lower lobectomy. The subcutaneous emphysema is almost resolved. There are no infiltrates posteriorly on the lateral film. IMPRESSION: 1. Postoperative day #5 status post right lower lobectomy. 2. Stage I A III adenocarcinoma of the right lower lobe T1c N0 M0 which maps as stage I A III. 3. Prior tobacco abuse. 4. Gastroesophageal reflux disease (GERD). 5. Anxiety. 6. Hypotension secondary to epidural, resolved. 7. Problematic pain control continuing, much better today. 8. Postoperative air leak, continuing. PLAN/DISCUSSION: I will diurese her today. I will transfer her to progressive care unit (PCU) today. We will have to keep a very close eye on her pain control.
[2019-06-13] MEDS: CitaloPRAM (CeleXA) 20 MG TAB PO SCH (20:06)
[2019-06-13] MEDS: ATORVASTATIN 20 MG TAB PO SCH (21:21)
[2019-06-13] MEDS: LORazepam 0.5 MG TAB PO SCH (21:37)
[2019-06-13] MEDS: FENTANYL/BUPIVACAINE BAG 250 ML EPIDURAL SCH (22:58)
[2019-06-14] VITALS: BP 103/59
[2019-06-14] MEDS: LEVALBUTEROL 1.25 MG/0.5 ML CONCENTRATE NEB NEB SCH ×4 (01:46→20:11)
[2019-06-14] MEDS: KETOROLAC 30 MG/ML VIAL (J1885) IV SCH ×4 (02:19→20:22)
[2019-06-14 04:00] VITALS: BP 100/58
[2019-06-14] MEDS: diphenhydrAMINE INJ 50MG/ML VIAL (J1200) IV PRN ×5 (04:19→20:23)
[2019-06-14 05:22] LABS: BASO # 0.1 10^3/uL (0.0-0.2); EOS # 0.5 10^3/uL (0.0-0.5); EOS % 4.8 % (0.0-3.0); HEMOGLOBIN 9.7 g/dl (12.0-15.5); LYMPH # 3.3 10^3/uL (1.5-5.0); LYMPH % 29.7 % (24.0-44.0); MEAN CORPUSCULAR HEMOGLOBIN 30.4 pg (27.0-33.0); MEAN CORPUSCULAR HGB CONC 32.3 g/dl (32.0-36.5); MONO # 1.2 10^3/uL (0.0-0.8); MONO % 11.3 % (0.0-5.0); NEUTROPHILS # 5.5 10^3/uL (1.5-8.5); NEUTROPHILS % 50.1 % (36.0-66.0); PLATELET COUNT, AUTOMATED 402 10^3/uL (150-450); RED BLOOD COUNT 3.19 10^6/uL (4.00-5.40)
[2019-06-14 05:53] LABS: BLOOD UREA NITROGEN 12 MG/DL (7-18); CALCIUM LEVEL 8.6 MG/DL (8.5-10.1); CARBON DIOXIDE LEVEL 30 MEQ/L (21-32); CHLORIDE LEVEL 103 MEQ/L (98-107); CREATININE FOR GFR 0.64 MG/DL (0.55-1.30); GLOMERULAR FILTRATION RATE > 60.0 (>51); GLUCOSE, FASTING 90 MG/DL (70-100); POTASSIUM SERUM 4.6 MEQ/L (3.5-5.1); SODIUM LEVEL 139 MEQ/L (136-145)
[2019-06-14] MEDS ORDERED: SLF 3 ML SYR IV PRN (06:45)
--- NOTE | 2019-06-14 08:02 | REP ---
Chest x-ray: Two views. History: Postop right lower lobectomy. Comparison study: June 13, 2019. Findings: An epidural catheter is seen in place. There are two right-sided chest tubes remaining in place. There is some post partial pneumonectomy volume loss in the right hemithorax. Lung tello are otherwise clear. There is mild pleural thickening along the right lateral chest wall. Pleural angles are sharp. Heart is not enlarged. Electronically Signed by Otoniel Ulloa MD 06/14/2019 07:54 A
[2019-06-14 08:51] VITALS: BP 102/53
[2019-06-14] MEDS: DOCUSATE SODIUM 100 MG CAP PO SCH ×2 (09:00→20:24)
[2019-06-14] MEDS: MOM 30ML SUSPENSION UDC PO SCH (09:00)
[2019-06-14] MEDS: NICOTINE 14 MG/24 HR TRANSDERMAL TOP SCH (09:12)
[2019-06-14] MEDS: PANTOPRAZOLE 40MG TAB (PROTONIX) PO SCH (09:12)
[2019-06-14] MEDS: LIDOCAINE 5% (LIDODERM) PATCH TD SCH (09:12)
[2019-06-14] MEDS: buPROPion **XL** TABLET 150MG (WELLBUTRIN XL) PO SCH (09:12)
[2019-06-14] MEDS: GABAPENTIN 100 MG CAP PO SCH (09:13)
[2019-06-14] MEDS: HEPARIN SOD (PORCINE) 5000 UNITS/ML VIAL (J1644 PER 1000UNITS) SC SCH ×2 (09:13→20:22)
[2019-06-14 11:42] VITALS: BP 114/70
[2019-06-14] MEDS ORDERED: FUROSEMIDE 20 MG/2 ML VIAL (J1940) IV ONE (12:45)
--- NOTE | 2019-06-14 13:09 | IPN ---
DATE: 06/14/2019 This is now the sixth postoperative day for Mrs. Mendoza. She has had the best night she has had. Her pain is being well controlled with the epidural. She has some pruritus from the epidural. Her vital signs show a maximum temperature (T-max) of 98.1 with a heart rate that ranges between 91 and 107 in a sinus rhythm with a respiratory rate of 18 to 20 without the use of accessory muscles who is 93% to 96% saturated on 2 liters nasal cannula and whose blood pressure is ranging between 103/59 to 102/53. Her intake and output over the past 24 hours has been recorded as 1350 in and 5245 out for a negativity of 3900 mL. She has put 345 mL out the chest tube. She weighs 73 kg compared to 75.1 kg yesterday. On physical examination, lungs show normal vesicular sounds with occasional rhonchi which clear with coughing. Percussion note is full to the diaphragm. Cardiac exam is without murmurs, clicks, gallops or rubs. I cannot feel her point of maximum impulse (PMI). S1 and S2 are normal. Abdomen is soft and nontender. Bowel sounds are positive. There is no hepatomegaly. No costovertebral angle (CVA) tenderness. Extremities show no pretibial edema and no calf tenderness. No differential swelling of the upper extremities. Skin is warm, dry and perfused without cyanosis or mottling including that of the nail beds and knees. Neck is supple. There is no jugular venous distention. No subcutaneous emphysema. Trachea is midline. Mouth shows her mucous membranes to be pink and moist. Lips and commissures are without lesions. There is no thrush. Eyes show her pupils to be equal and reactive. Extraocular movements intact. Sclerae nonicteric. Neurologic shows II-XII intact along with gross motor and gross sensation intact. Gait is not tested. Psychiatric showed her to be awake, alert and oriented times three with appropriate and affect and conversational. Her white count today is 11.0, essentially unchanged from 10.4 yesterday, hemoglobin and hematocrit are 9.6 and 30.0, up from 8.8 and 26.9 secondary to hemoconcentration. Platelet count is 402 with ma differential that shows 50% neutrophils, 29% lymphocytes, 11% monocytes. There are no immature forms and no toxic granulations. Her electrolytes are normal with a BUN and creatinine of 12 and 0.64, a glucose of 90 and a calcium of 8.6. Her chest x-ray shows her lung fully expanded to the chest wall. Almost all the subcutaneous emphysema is dissipating. Chest tubes are unchanged in adequate position. I see no infiltrates on the lateral film. There is a mediastinal shift and a diaphragmatic elevation secondary to obligate volume losses from the lobectomy. IMPRESSION: 1. Stage IA 3 adenocarcinoma of the right lower lobe , T1c N0 M0. 2. Postoperative day #6 status post right lower lobectomy. 3. Prior tobacco abuse. 4. Gastroesophageal reflux disease (GERD). 5. Anxiety. 6. Hypotension secondary to the epidural, resolved. 7. Problematic pain control, much improved. 8. Postoperative air leak, continuing but smaller. PLAN AND DISCUSSION: I will gently diurese her today with 20 mg of Lasix. I will also take her chest tube off suction. I will increase her Benadryl to q. 3 hours.
[2019-06-14] MEDS: SLF 3 ML SYR IV SCH ×2 (14:16→21:12)
[2019-06-14 17:30] VITALS: BP 126/69
[2019-06-14 20:00] VITALS: BP 124/77
[2019-06-14] MEDS: CitaloPRAM (CeleXA) 20 MG TAB PO SCH (20:23)
[2019-06-14] MEDS: LORazepam 0.5 MG TAB PO SCH (20:23)
[2019-06-14] MEDS: ATORVASTATIN 20 MG TAB PO SCH (20:24)
[2019-06-14] MEDS: FENTANYL/BUPIVACAINE BAG 250 ML EPIDURAL SCH (23:53)
[2019-06-15] VITALS: BP 125/66
[2019-06-15] MEDS: diphenhydrAMINE INJ 50MG/ML VIAL (J1200) IV PRN ×6 (00:05→17:33)
[2019-06-15] MEDS: LEVALBUTEROL 1.25 MG/0.5 ML CONCENTRATE NEB NEB SCH ×4 (01:09→20:13)
[2019-06-15] MEDS: KETOROLAC 30 MG/ML VIAL (J1885) IV SCH ×4 (04:27→20:17)
[2019-06-15 04:28] VITALS: BP 114/80
[2019-06-15] MEDS: SLF 3 ML SYR IV SCH ×3 (05:36→20:18)
[2019-06-15 08:00] VITALS: BP 104/63
[2019-06-15 08:36] LABS: BASO # 0.1 10^3/uL (0.0-0.2); BASO % 1.1 % (0.0-1.0); EOS # 0.7 10^3/uL (0.0-0.5); EOS % 5.3 % (0.0-3.0); HEMATOCRIT 30.6 % (36.0-47.0); HEMOGLOBIN 9.9 g/dl (12.0-15.5); LYMPH # 3.4 10^3/uL (1.5-5.0); LYMPH % 27.6 % (24.0-44.0); MEAN CORPUSCULAR HEMOGLOBIN 30.2 pg (27.0-33.0); MEAN CORPUSCULAR HGB CONC 32.4 g/dl (32.0-36.5); MEAN CORPUSCULAR VOLUME 93.3 fl (80.0-96.0); MONO # 1.6 10^3/uL (0.0-0.8); MONO % 12.7 % (0.0-5.0); NEUTROPHILS # 6.1 10^3/uL (1.5-8.5); NEUTROPHILS % 48.9 % (36.0-66.0); PLATELET COUNT, AUTOMATED 506 10^3/uL (150-450); RED BLOOD COUNT 3.28 10^6/uL (4.00-5.40); WHITE BLOOD COUNT 12.3 10^3/uL (4.0-10.0)
--- NOTE | 2019-06-15 08:41 | REP ---
Chest x-ray: Two views. History: Postop right lower lobectomy. Comparison chest x-ray: June 14, 2019. Findings: Epidural catheter is seen. Monitoring electrodes are noted. Two right-sided chest tubes remain in place. There is mild pleural thickening on the right lateral chest wall. Pleural angles are sharp. Volume loss is seen in the right hemithorax as expected post partial pneumonectomy with elevation right hemidiaphragm. No new infiltrate. Electronically Signed by Otoniel Ulloa MD 06/15/2019 08:32 A
[2019-06-15] MEDS: MOM 30ML SUSPENSION UDC PO SCH (09:00)
[2019-06-15 09:08] LABS: BLOOD UREA NITROGEN 13 MG/DL (7-18); CALCIUM LEVEL 8.9 MG/DL (8.5-10.1); CARBON DIOXIDE LEVEL 29 MEQ/L (21-32); CHLORIDE LEVEL 101 MEQ/L (98-107); CREATININE FOR GFR 0.73 MG/DL (0.55-1.30); GLOMERULAR FILTRATION RATE > 60.0 (>51); GLUCOSE, FASTING 92 MG/DL (70-100); POTASSIUM SERUM 4.7 MEQ/L (3.5-5.1); SODIUM LEVEL 137 MEQ/L (136-145)
[2019-06-15] MEDS: HEPARIN SOD (PORCINE) 5000 UNITS/ML VIAL (J1644 PER 1000UNITS) SC SCH ×2 (09:13→20:17)
[2019-06-15] MEDS: DOCUSATE SODIUM 100 MG CAP PO SCH ×2 (09:13→20:16)
[2019-06-15] MEDS: PANTOPRAZOLE 40MG TAB (PROTONIX) PO SCH (09:13)
[2019-06-15] MEDS: GABAPENTIN 100 MG CAP PO SCH (09:13)
[2019-06-15] MEDS: buPROPion **XL** TABLET 150MG (WELLBUTRIN XL) PO SCH (09:13)
[2019-06-15] MEDS: LIDOCAINE 5% (LIDODERM) PATCH TD SCH (09:14)
[2019-06-15] MEDS: NICOTINE 14 MG/24 HR TRANSDERMAL TOP SCH (09:14)
[2019-06-15] MEDS ORDERED: FUROSEMIDE 20 MG/2 ML VIAL (J1940) IV ONE (09:30)
--- NOTE | 2019-06-15 09:39 | IPN ---
DATE: 06/15/2019 This is now the seventh postoperative day for Mrs. Mendoza. She has a small air leak with forceful coughing but none with talking. She has been off suction. Her pain is being well controlled with the epidural. Her vital signs show a maximum temperature (T-max) of 97.9 with a heart rate that ranges between 93 and 89 in a sinus rhythm, respiratory rate of 16-20 without the use of accessory muscles who is 93% to 99% saturated on room air and whose blood pressure is ranging between 126/69 to 114/80. Her intake and output for the past 24 hours has been recorded as 860 in and 2405 out for a negativity of 1500 mL. She has put 255 mL out the chest tube. Her weigh today is 74.6 kg compared to 73 kg yesterday. On physical examination, she has normal vesicular sounds on either side without wheezes, rhonchi or rales. Her subcutaneous emphysema has dissipated. Cardiac exam is without murmurs, clicks, gallops or rubs. I cannot feel her point of maximum impulse (PMI). S1 and S2 are normal. Abdomen is soft, nontender. Bowel sounds are positive. There is no hepatomegaly. No costovertebral angle (CVA) tenderness. She is eating and having bowel movements. Extremities show no pretibial edema and no calf tenderness. No differential swelling of the upper extremities. Skin is warm, dry and perfused without cyanosis or mottling including that of the nail beds and knees. Neck is supple. There is no jugular venous distention. No subcutaneous emphysema. Trachea is midline. Mouth shows her mucous membranes to be pink and moist. Lips and commissures are without lesions. There is no thrush. Eyes show her pupils to be equal and reactive. Extraocular movements intact. Sclerae nonicteric. Neurologic shows II-XII intact along with gross motor and gross sensation intact. Gait is not tested. Psychiatric showed her to be awake, alert and oriented times three with appropriate and affect and conversational. Her white count today is 12.3, slightly up from 11.0 yesterday. Hemoglobin and hematocrit are 9.9 and 36.6, essentially unchanged from yesterday's of 9.6 and 30.0. Platelet count is 506 and stable, and differential shows 48% neutrophils, 27% lymphocytes, 12% monocytes. There are no immature forms, no toxic granulations. Her electrolytes are normal with a BUN and creatinine of 15 and 0.73, a glucose of 92 and a calcium of 8.9. Her chest x-ray shows her lung fully expanded to the chest wall with the subcutaneous emphysema gone. There are no infiltrates either on the PA or lateral view. IMPRESSION: 1. Stage IA 3 adenocarcinoma of the right lower lobe, [id number]. 2. Postoperative day #7 status post right lower lobectomy. 3. Prior tobacco abuse. 4. Gastroesophageal reflux disease (GERD). 5. Anxiety. 6. Hypotension secondary to the epidural, resolved. 7. Problematic pain control, improved. 8. Postoperative air leak, continuing but much smaller. PLAN AND DISCUSSION: I will again gently diurese her today. I will keep her off suction. Her air leak is almost resolved and I am a little to undertake a blood patch at this point in time.
[2019-06-15 12:00] VITALS: BP 123/59
[2019-06-15 20:00] VITALS: BP 121/67
[2019-06-15] MEDS: ATORVASTATIN 20 MG TAB PO SCH (20:17)
[2019-06-15] MEDS: CitaloPRAM (CeleXA) 20 MG TAB PO SCH (20:17)
[2019-06-15] MEDS: LORazepam 0.5 MG TAB PO SCH (20:17)
[2019-06-15] MEDS: FENTANYL/BUPIVACAINE BAG 250 ML EPIDURAL SCH (23:00)
[2019-06-16] VITALS: BP 114/67
[2019-06-16] MEDS: diphenhydrAMINE INJ 50MG/ML VIAL (J1200) IV PRN ×6 (00:24→21:27)
[2019-06-16] MEDS: LEVALBUTEROL 1.25 MG/0.5 ML CONCENTRATE NEB NEB SCH ×4 (02:00→20:27)
[2019-06-16] MEDS: KETOROLAC 30 MG/ML VIAL (J1885) IV SCH ×4 (03:10→20:18)
[2019-06-16 04:00] VITALS: BP 105/57
[2019-06-16 04:52] LABS: BASO # 0.2 10^3/uL (0.0-0.2); BASO % 1.2 % (0.0-1.0); EOS # 0.7 10^3/uL (0.0-0.5); EOS % 5.2 % (0.0-3.0); HEMATOCRIT 29.4 % (36.0-47.0); HEMOGLOBIN 9.4 g/dl (12.0-15.5); LYMPH # 3.1 10^3/uL (1.5-5.0); LYMPH % 22.4 % (24.0-44.0); MEAN CORPUSCULAR HEMOGLOBIN 30.1 pg (27.0-33.0); MEAN CORPUSCULAR VOLUME 94.2 fl (80.0-96.0); MONO # 1.6 10^3/uL (0.0-0.8); MONO % 11.9 % (0.0-5.0); NEUTROPHILS # 7.6 10^3/uL (1.5-8.5); NEUTROPHILS % 55.6 % (36.0-66.0); PLATELET COUNT, AUTOMATED 515 10^3/uL (150-450); RED BLOOD COUNT 3.12 10^6/uL (4.00-5.40); WHITE BLOOD COUNT 13.7 10^3/uL (4.0-10.0)
[2019-06-16 05:11] LABS: BLOOD UREA NITROGEN 13 MG/DL (7-18); CALCIUM LEVEL 8.5 MG/DL (8.5-10.1); CARBON DIOXIDE LEVEL 28 MEQ/L (21-32); CHLORIDE LEVEL 103 MEQ/L (98-107); GLOMERULAR FILTRATION RATE > 60.0 (>51); GLUCOSE, FASTING 122 MG/DL (70-100); POTASSIUM SERUM 4.1 MEQ/L (3.5-5.1); SODIUM LEVEL 137 MEQ/L (136-145)
[2019-06-16] MEDS: SLF 3 ML SYR IV SCH ×3 (06:23→21:28)
[2019-06-16 08:00] VITALS: BP 104/53
--- NOTE | 2019-06-16 08:00 | REP ---
Chest x-ray: Two views. History: Postop right lower lobectomy. Comparison chest x-ray: June 15, 2019. Findings: Monitoring electrodes and an epidural catheter are again noted. There are two right-sided chest tubes remain in place. There is a zone of linear plate-like atelectasis and some pleural thickening adjacent to the more laterally positioned chest tube. No new infiltrate is seen on either side. Findings are unchanged. Electronically Signed by Otoniel Ulloa MD 06/16/2019 07:51 A
[2019-06-16] MEDS: HEPARIN SOD (PORCINE) 5000 UNITS/ML VIAL (J1644 PER 1000UNITS) SC SCH ×2 (08:29→20:18)
[2019-06-16] MEDS: buPROPion **XL** TABLET 150MG (WELLBUTRIN XL) PO SCH (08:30)
[2019-06-16] MEDS: GABAPENTIN 100 MG CAP PO SCH (08:30)
[2019-06-16] MEDS: PANTOPRAZOLE 40MG TAB (PROTONIX) PO SCH (08:30)
[2019-06-16] MEDS: LIDOCAINE 5% (LIDODERM) PATCH TD SCH (08:33)
[2019-06-16] MEDS: NICOTINE 14 MG/24 HR TRANSDERMAL TOP SCH (08:33)
[2019-06-16] MEDS: DOCUSATE SODIUM 100 MG CAP PO SCH ×2 (08:34→19:50)
[2019-06-16] MEDS: MOM 30ML SUSPENSION UDC PO SCH (08:34)
[2019-06-16 12:00] VITALS: BP 138/74
[2019-06-16 16:00] VITALS: BP 113/55
--- NOTE | 2019-06-16 19:02 | IPN ---
DATE: 06/16/2019 This is now the eighth postoperative day for Mrs. Mendoza. She has a small air leak with forceful coughing, but nothing when she is speaking. She has been off suction and her chest x-ray shows her lung fully expanded to the chest wall and there is no subcutaneous emphysema. Her vital signs show a maximum temperature (t-max) of 98.3 with a heart rate that ranges between 74 and 107 in a sinus rhythm, respiratory rate of 16 to 18 without the use of accessory muscles, who is 94 to 97% saturated on room air and whose blood pressure is ranging between 138/74 to 104/53. Her intake and output over the past 24 hours has been recorded as 3060 in and 2780 out for a positivity of 280 mL. She has put out 2625 mL in urine with 155 mL from the chest tube. Her weight today is 74.8 kg compared to 74.6 kg yesterday. The air leak is described above. PHYSICAL EXAMINATION: LUNGS: Her lungs show normal vesicular sounds without wheezes, rhonchi or rales. Percussion note is full to the diaphragm. There is no subcutaneous emphysema over the chest wall or the base of the neck. CARDIAC EXAM: Without murmurs, clicks, gallops or rubs. I cannot feel her point of maximum impulse (PMI). S1, S2 are normal. ABDOMEN: Soft, nontender. Bowel sounds positive. There is no hepatomegaly. No costovertebral angle tenderness. EXTREMITIES: Show no pretibial edema. No calf tenderness. No differential swelling of the upper extremities. SKIN: Warm, dry and perfused without cyanosis or mottling, including that of the nail beds and knees. NECK: Supple. There is no jugular venous distention. No subcutaneous emphysema. Trachea is midline. MOUTH: Shows her mucous membranes to be pink and moist. Lips and commissures without lesions. There is no thrush. EYES: Show her pupils to be equal and reactive. Extraocular motion intact. Sclerae anicteric. NEUROLOGIC: Shows II through XII intact with gross motor and gross sensation intact. Gait is not tested. PSYCHIATRIC: Shows her to be awake and alert, oriented times three with appropriate mood and affect and conversational. Her white count today is 13.7, up from 12.3 yesterday. Hemoglobin and hematocrit are 9.4 and 29.4, respectively with a platelet count of 515. Differential shows 55% neutrophils, 22% lymphocytes, 11% monocytes. There are no immature forms and no toxic granulations. Electrolytes are normal with a BUN and creatinine of 13 and 0.90, glucose 122, calcium 8.5. Chest x-ray shows her lung fully expanded to the chest wall with sharp costophrenic angles and no infiltrates. There is no subcutaneous emphysema. IMPRESSION: 1. Postoperative day #8 status post right lower lobectomy. 2. Stage I A3 adenocarcinoma of the right lower lobe, [id number]. 3. Gastroesophageal reflux disease (GERD). 4. Prior tobacco abuse. 5. Hypertension secondary to the epidural, resolved. 6. Problematic pain control, improved and nearly resolved. 7. Postoperative air leak, smaller. PLAN/DISCUSSION: Today I am going to clamp her chest tube. I am not sure whether the air leak represents air within the thorax because the lung is not fully expanded to the chest wall. It look as though it is expanded to the chest wall, though there may be an element of air just above the diaphragm. We will monitor for increasing subcutaneous emphysema and the status of her chest x-ray tomorrow. If her chest x-ray shows her lung completely expanded or at least no change from today, I will remove her chest tubes and plan for discharge in a few days.
[2019-06-16 20:00] VITALS: BP 139/75
[2019-06-16] MEDS: ATORVASTATIN 20 MG TAB PO SCH (20:18)
[2019-06-16] MEDS: CitaloPRAM (CeleXA) 20 MG TAB PO SCH (20:18)
[2019-06-16] MEDS: LORazepam 0.5 MG TAB PO SCH (21:26)
[2019-06-16] MEDS: FENTANYL/BUPIVACAINE BAG 250 ML EPIDURAL SCH (22:26)
[2019-06-17] VITALS: BP 115/56
[2019-06-17] MEDS: LEVALBUTEROL 1.25 MG/0.5 ML CONCENTRATE NEB NEB SCH ×4 (01:24→20:00)
[2019-06-17 04:00] VITALS: BP 124/70
[2019-06-17] MEDS: SLF 3 ML SYR IV SCH ×3 (04:03→20:22)
[2019-06-17] MEDS: diphenhydrAMINE INJ 50MG/ML VIAL (J1200) IV PRN ×6 (04:03→21:39)
[2019-06-17] MEDS: KETOROLAC 30 MG/ML VIAL (J1885) IV SCH ×4 (04:03→20:19)
[2019-06-17 04:55] LABS: BASO # 0.1 10^3/uL (0.0-0.2); EOS # 0.7 10^3/uL (0.0-0.5); EOS % 5.3 % (0.0-3.0); HEMATOCRIT 29.4 % (36.0-47.0); HEMOGLOBIN 9.5 g/dl (12.0-15.5); LYMPH # 3.2 10^3/uL (1.5-5.0); LYMPH % 26.2 % (24.0-44.0); MEAN CORPUSCULAR HEMOGLOBIN 30.5 pg (27.0-33.0); MEAN CORPUSCULAR HGB CONC 32.3 g/dl (32.0-36.5); MEAN CORPUSCULAR VOLUME 94.5 fl (80.0-96.0); MONO # 1.7 10^3/uL (0.0-0.8); MONO % 13.8 % (0.0-5.0); NEUTROPHILS # 6.1 10^3/uL (1.5-8.5); NEUTROPHILS % 49.5 % (36.0-66.0); PLATELET COUNT, AUTOMATED 551 10^3/uL (150-450); RED BLOOD COUNT 3.11 10^6/uL (4.00-5.40); WHITE BLOOD COUNT 12.4 10^3/uL (4.0-10.0)
[2019-06-17 05:13] LABS: BLOOD UREA NITROGEN 13 MG/DL (7-18); CALCIUM LEVEL 9.2 MG/DL (8.5-10.1); CARBON DIOXIDE LEVEL 28 MEQ/L (21-32); CHLORIDE LEVEL 107 MEQ/L (98-107); GLOMERULAR FILTRATION RATE > 60.0 (>51); GLUCOSE, FASTING 93 MG/DL (70-100); POTASSIUM SERUM 4.6 MEQ/L (3.5-5.1); SODIUM LEVEL 139 MEQ/L (136-145)
[2019-06-17 08:00] VITALS: BP 117/69
[2019-06-17] MEDS: DOCUSATE SODIUM 100 MG CAP PO SCH ×2 (08:34→20:21)
[2019-06-17] MEDS: PANTOPRAZOLE 40MG TAB (PROTONIX) PO SCH (08:34)
[2019-06-17] MEDS: GABAPENTIN 100 MG CAP PO SCH (08:34)
[2019-06-17] MEDS: LIDOCAINE 5% (LIDODERM) PATCH TD SCH (08:34)
[2019-06-17] MEDS: MOM 30ML SUSPENSION UDC PO SCH (08:34)
[2019-06-17] MEDS: NICOTINE 14 MG/24 HR TRANSDERMAL TOP SCH (08:34)
[2019-06-17] MEDS: buPROPion **XL** TABLET 150MG (WELLBUTRIN XL) PO SCH (08:34)
[2019-06-17] MEDS: HEPARIN SOD (PORCINE) 5000 UNITS/ML VIAL (J1644 PER 1000UNITS) SC SCH ×2 (08:35→20:21)
[2019-06-17] MEDS ORDERED: FUROSEMIDE 40 MG TAB PO ONE (09:30)
--- NOTE | 2019-06-17 10:11 | REP ---
Chest x-ray: Two views. History: Postop right lower lobectomy. Comparison study June 16, 2019 and June 15, 2019. Findings: Two right-sided chest tubes remain in place unchanged. Plate-like atelectasis adjacent to one of the right chest tubes has improved. Pleural thickening along the right lateral chest wall is unchanged. No new infiltrate is seen. Monitoring electrodes and an epidural catheter persist. Impression: No new infiltrate. Electronically Signed by Otoniel Ulloa MD 06/17/2019 10:03 A
[2019-06-17 11:29] VITALS: BP 122/68
--- NOTE | 2019-06-17 11:46 | IPN ---
DATE OF SERVICE: 06/17/2019 This is now the ninth postoperative day for Mrs. Mendoza. She is breathing well, and her pain is being well controlled. She did complain of some shortness of breath earlier this morning. There is a cough but no sputum production. Pain is well controlled with the epidural. Most notably, her chest x-ray as discussed below shows her lung fully expanded to the chest wall. Her vital signs show a maximum temperature (Tmax) of 97.4 with a heart rate that ranges between 86 and 100 in a sinus rhythm, respiratory rate of 18-24 without the use of accessory muscles, who is 99% saturated on room air and whose blood pressure is ranging between 138/74 to 113/55. Her intake and output over the past 24 hours has been recorded as 1375 in and 3292 out for a negativity of 1917 mL after 40 mg of Lasix yesterday. Her weight is pending today. Her chest tube has been clamped for the last 24 hours. On physical examination, she shows normal vesicular sounds with some coarse rhonchi which essentially cleared with coughing. Percussion note is full to the diaphragm. Most notably, there is no subcutaneous emphysema over the chest wall, in the axilla, or at the base of the neck. There is no wheezing. CARDIAC EXAMINATION: Is without murmurs, clicks, gallops, or rubs. I cannot feel her point of maximum impulse (PMI). S1 and S2 are normal. ABDOMEN: Is soft, nontender. Bowel sounds are positive. There is no hepatomegaly. No costovertebral angle (CVA) tenderness. EXTREMITIES: Show no pretibial edema. No calf tenderness. No differential swelling of the upper extremities. SKIN: Is warm, dry, and perfused without cyanosis or mottling, including that of the nail beds and the knees. NECK: Is supple. There is no jugular venous distention. No subcutaneous emphysema. Trachea is midline. MOUTH: Shows her mucous membranes to be pink and moist. Lips and commissures without lesions. There is no thrush. EYES: Show her pupils to be equal and reactive. Extraocular motion intact. Sclerae anicteric. NEUROLOGIC: Shows II-XII intact, along with gross motor and gross sensation intact. Gait is not tested. PSYCHIATRIC: Shows her to be awake and alert, oriented times three with appropriate mood and affect and conversational. Her chest x-ray shows her lung fully expanded to the chest wall. There is a little bit of fluid in the right costophrenic angle, which is changed from yesterday's film prior to clamping her chest tubes. There is no subcutaneous emphysema. I have drained any residual fluid prior to pulling her chest tube. Her white count is 12.4 down from 13.7 yesterday with a hemoglobin and hematocrit of 9.5 and 29.4 unchanged from yesterday with a platelet count of 551 and stable and unchanged. Differential shows 49% neutrophils, 26% lymphocytes, 13% monocytes. There are no immature forms and no toxic granulations. Her electrolytes are normal with a BUN and creatinine of 13 and 0.8 with a glucose of 93 and a calcium of 9.2. IMPRESSION: 1. Postoperative day #9, status post right lower lobectomy. 2. Stage IA3 adenocarcinoma of the right lower lobe, [id number]. 3. Gastroesophageal reflux disease (GERD). 4. Prior tobacco abuse. 5. Hypotension secondary to the epidural, resolved. 6. Problematic pain control, improved and nearly resolved. 7. Postoperative air leak, resolved. PLAN AND DISCUSSION: I will remove her chest tubes today. I will keep her another 24 hours. Will wean the epidural and discontinue the Deshpande catheter and place her on oral pain control I will add a fentanyl patch.
[2019-06-17] MEDS: PERCOCET 5MG/325MG TAB PO PRN ×3 (12:57→23:02)
[2019-06-17 16:00] VITALS: BP 118/72
[2019-06-17 20:00] VITALS: BP 128/85
[2019-06-17] MEDS: CitaloPRAM (CeleXA) 20 MG TAB PO SCH (20:18)
[2019-06-17] MEDS: LORazepam 0.5 MG TAB PO SCH (20:18)
[2019-06-17] MEDS: ATORVASTATIN 20 MG TAB PO SCH (20:18)
[2019-06-17] MEDS: NORCO, ANEXSIA 5/325MG TABLET (HYDROcodone/ACETAMINOPHEN) PO PRN (21:39)
[2019-06-17] MEDS: FENTANYL/BUPIVACAINE BAG 250 ML EPIDURAL SCH (23:00)
[2019-06-18] VITALS: BP 138/84
[2019-06-18] MEDS: LEVALBUTEROL 1.25 MG/0.5 ML CONCENTRATE NEB NEB SCH ×3 (02:00→13:27)
[2019-06-18] MEDS: KETOROLAC 30 MG/ML VIAL (J1885) IV SCH ×2 (03:30→07:51)
[2019-06-18] MEDS: PERCOCET 5MG/325MG TAB PO PRN ×3 (03:31→11:34)
[2019-06-18 04:00] VITALS: BP 124/83
[2019-06-18 04:35] LABS: BASO # 0.2 10^3/uL (0.0-0.2); BASO % 1.3 % (0.0-1.0); EOS # 0.6 10^3/uL (0.0-0.5); EOS % 5.1 % (0.0-3.0); HEMATOCRIT 30.4 % (36.0-47.0); HEMOGLOBIN 9.8 g/dl (12.0-15.5); LYMPH # 3.5 10^3/uL (1.5-5.0); LYMPH % 28.4 % (24.0-44.0); MEAN CORPUSCULAR HEMOGLOBIN 30.1 pg (27.0-33.0); MEAN CORPUSCULAR HGB CONC 32.2 g/dl (32.0-36.5); MEAN CORPUSCULAR VOLUME 93.3 fl (80.0-96.0); MONO # 1.5 10^3/uL (0.0-0.8); NEUTROPHILS % 48.7 % (36.0-66.0); PLATELET COUNT, AUTOMATED 589 10^3/uL (150-450); RED BLOOD COUNT 3.26 10^6/uL (4.00-5.40); WHITE BLOOD COUNT 12.4 10^3/uL (4.0-10.0)
[2019-06-18] MEDS: NORCO, ANEXSIA 5/325MG TABLET (HYDROcodone/ACETAMINOPHEN) PO PRN ×2 (04:37→10:13)
[2019-06-18 04:55] LABS: BLOOD UREA NITROGEN 15 MG/DL (7-18); CALCIUM LEVEL 8.9 MG/DL (8.5-10.1); CARBON DIOXIDE LEVEL 30 MEQ/L (21-32); CHLORIDE LEVEL 105 MEQ/L (98-107); CREATININE FOR GFR 0.78 MG/DL (0.55-1.30); GLOMERULAR FILTRATION RATE > 60.0 (>51); GLUCOSE, FASTING 101 MG/DL (70-100); POTASSIUM SERUM 4.2 MEQ/L (3.5-5.1); SODIUM LEVEL 140 MEQ/L (136-145)
[2019-06-18] MEDS: SLF 3 ML SYR IV SCH (05:24)
[2019-06-18 07:30] VITALS: BP 144/82
[2019-06-18] MEDS: DOCUSATE SODIUM 100 MG CAP PO SCH (07:44)
[2019-06-18] MEDS: MOM 30ML SUSPENSION UDC PO SCH (07:44)
[2019-06-18] MEDS: HEPARIN SOD (PORCINE) 5000 UNITS/ML VIAL (J1644 PER 1000UNITS) SC SCH (07:52)
[2019-06-18] MEDS: LIDOCAINE 5% (LIDODERM) PATCH TD SCH (07:52)
[2019-06-18] MEDS: NICOTINE 14 MG/24 HR TRANSDERMAL TOP SCH (07:52)
[2019-06-18] MEDS: GABAPENTIN 100 MG CAP PO SCH (07:52)
[2019-06-18] MEDS: buPROPion **XL** TABLET 150MG (WELLBUTRIN XL) PO SCH (07:53)
[2019-06-18] MEDS: PANTOPRAZOLE 40MG TAB (PROTONIX) PO SCH (07:53)
--- NOTE | 2019-06-18 08:09 | REP ---
CHEST X-RAY: Two views. HISTORY: Postop right lower lobectomy. Comparison study June 17, 2019 and June 16, 2019. FINDINGS: The two right-sided chest tubes have been withdrawn. There is no evidence of significant pneumothorax or hydrothorax. Some residual pleural thickening is again seen laterally on the right. Plate-like atelectasis is observed in the right mid lung field unchanged. Left lung remains clear. IMPRESSION: No acute disease. Status post removal of right-sided chest tubes. Electronically Signed by Otoniel Ulloa MD 06/18/2019 08:40 A
[2019-06-18] MEDS ORDERED: fentaNYL 25 MCG/HR PATCH TOP SCH (09:00)
[2019-06-18] MEDS ORDERED: DURA25DI3 TOP (10:34)
[2019-06-18] MEDS ORDERED: PERCOCET PO (10:34)
[2019-06-18 12:00] VITALS: BP 140/68
--- NOTE | 2019-06-18 12:02 | DSES ---
DATE OF ADMISSION: 06/08/2019 DATE OF DISCHARGE: 06/18/2019 DISCHARGE DIAGNOSES: 1. 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 2. Postoperative day #10 status post right lower lobectomy. 3. Gastroesophageal reflux disease. 4. Prior tobacco abuse. 5. Hypotension secondary to epidural, resolved. 6. Problematic pain control during the course of her hospitalization, improved. 7. Postoperative alveolopleural fistula, resolved. HOSPITAL COURSE: The patient is a 58-year-old white female who underwent early detection of low dose screening CT and was found to have a right lower lobe lesion. She is a prior smoker and was eligible for CT screening. The tumor measured 2.6 cm in its greatest dimension on CT scan. She was judged to have stage I disease. Her pulmonary function tests (PFTs) show an FEV1 of 2.33, which is 96% of predicted, with a CHITRA with diffusing capacity of 13.76, which is 63% of predicted. She underwent a right lower lobectomy on 06/08/2019. The mass was initially wedged out with a positive frozen section, which then led to the lobectomy. A complete node dissection including the paratracheal and subcarinal nodes was undertaken. Final pathology showed all nodes negative with the tumor measuring 3 cm in its largest dimension. She had a benign postoperative course except for problematic pain control where the epidural had to be replaced. The first two days she had hypotension secondary to the epidural, which was treated with phenylephrine. She is listed as having an allergy to pseudoephedrine but tolerated the phenylephrine perfectly well. She did have a longer than expected air leak, but by the eighth postoperative day the air leak had disappeared. The chest tube was clamped and after 24 hours the chest tube was removed. The patient is being discharged home on her home medications of atorvastatin 20 mg nightly, Wellbutrin 150 mg every day, Celexa 40 mg every day, gabapentin 200 mg every day, Ativan 1 mg nightly and nicotine patch 14 mg every day, along with Prilosec 40 mg every day. She is being sent home on Percocet 5/325 1-2 tablets every 4 hours as needed, pain, along with a Duragesic patch of 25 mcg every 3 days. She will return to see me in 1 week in postoperative followup. Her discharge white count is 12.4 with hemoglobin and hematocrit of 9.8 and 30.4, and a platelet count of 589. Differential shows 46% neutrophils, 28% lymphocytes, and 12% monocytes. Electrolytes are normal with a potassium of 4.2 and a BUN and creatinine of 15 and 0.78. Her chest x-ray shows her lung fully expanded to the chest wall with obligate volume loss of the right lung secondary to the lobectomy. There is minimal subcutaneous emphysema at the base of the neck, which is dissipating. Costophrenic angles are sharp and there are no infiltrates. edited: 06/21/2019 0713 tkf [email or web address]
[2019-06-21] MEDS ORDERED: FENTANYL REMOVAL DOCUMENTATION MISC XX SCH (09:00)
== END 2019-06-18 14:08 | disposition home or self-care (01) | DRG 120 ==
LOC: M OR 07:22 → M ICU 16:00 → M PCU 06-13 12:02
PROVIDERS: ADMIT Thoracic Surgery (Cardiothoracic Vascular Surgery); ATTEND Thoracic Surgery (Cardiothoracic Vascular Surgery)
PROC: 07B70ZX Excision of Thorax Lymphatic, Open Approach, Diagnostic (ICD-10-PCS; 2019-06-08)
PROC: 0B9F8ZZ Drainage of Right Lower Lung Lobe, Via Natural or Artificial Opening Endoscopic (ICD-10-PCS; 2019-06-08)
PROC: 0BTF0ZZ Resection of Right Lower Lung Lobe, Open Approach (ICD-10-PCS; principal; 2019-06-08 09:00)
DX: C34.31 Malignant neoplasm of lower lobe, right bronchus or lung (principal); I95.2 Hypotension due to drugs; J95.812 Postprocedural air leak; K21.9 Gastro-esophageal reflux disease without esophagitis; F41.9 Anxiety disorder, unspecified; T41.3X5A Adverse effect of local anesthetics, initial encounter; Z87.891 Personal history of nicotine dependence; Z88.0 Allergy status to penicillin; Z88.2 Allergy status to sulfonamides; Z88.1 Allergy status to other antibiotic agents; Z88.8 Allergy status to other drugs, medicaments and biological substances; Z91.013 Allergy to seafood; Z79.899 Other long term (current) drug therapy

== ENCOUNTER → 2019-06-29 | Outpatient (CLI) | payer BC ==
[~2019-06-29] MED LIST changes: -ACETAMINOPHEN 1000MG 100ML IV BTL (OFIRMEV) (J0131 PER 10MG) As Ordered ONE; +DURA25DI3 TOP; -KETOROLAC 60 MG/2 ML VIAL (J1885) As Ordered ONE; -LIDOCAINE 1% MDV 20ML VIAL SQ PRN; -LIDOCAINE 2% INJ 100 MG/5 ML SDV (FOR ANES.) As Ordered ONE; -LR 1,000 ML IV ONE; -MUPIROCIN 2% OINT 22 GM TUBE TOP ONE; -ONDANSETRON 4MG/2ML VIAL (J2405) As Ordered ONE; +PERCOCET PO; -ROCURONIUM BROMIDE 50 MG/5 ML VIAL As Ordered ONE; -VANCOMYCIN HCL 1,000 MG, VIAL MATE ADAPTER 1 EACH in D5W 250 ML IV ONE; -dexameTHASONE 4 MG/ML 1ML VIAL (J1100) As Ordered ONE; -propofoL 200 MG/20 ML VIAL As Ordered ONE
--- NOTE | 2019-06-30 15:54 | REP ---
Clinical: History of solitary pulmonary nodule. Technique: PA and lateral. Comparison: 06/17/2019. Findings: Left hemithorax appears well aerated and clear. Cardiac silhouette is normal. Chronic stable postsurgical changes involving the right hemithorax noted. No pneumothorax. Skeletal structures intact. Impression: Chronic-appearing postsurgical pleuroparenchymal changes involving the right hemithorax. Electronically Signed by Canelo Parker MD 06/30/2019 03:45 P
== END ==
LOC: M CLY 06:56
PROVIDERS: ATTEND Thoracic Surgery (Cardiothoracic Vascular Surgery)
DX: R91.1 Solitary pulmonary nodule (principal)

== ENCOUNTER → 2019-07-09 | Outpatient (CLI) | payer BC ==
--- NOTE | 2019-07-09 10:49 | REP ---
REASON FOR EXAM: Followup. COMPARISON: Multiple, the latest 06/29/2019. The cardiomediastinal silhouette and lung tello are unchanged. Once again, there is a right lower lobe opacity with right CP angle blunting, status quo. The left lung is clear and unchanged. No acute patchy parenchymal opacities or pleural effusions have developed. There is no change in the osseous structures. IMPRESSION: Stable-appearing chronic changes. Electronically Signed by Flex Marie DO 07/09/2019 11:38 A
== END ==
LOC: M CLY 08:13
PROVIDERS: ATTEND Thoracic Surgery (Cardiothoracic Vascular Surgery)
DX: C34.31 Malignant neoplasm of lower lobe, right bronchus or lung (principal)

== ENCOUNTER → 2019-07-22 | Outpatient (CLI) | payer BC ==
--- NOTE | 2019-07-22 07:33 | REP ---
Clinical: Pleural effusion. Technique: Axial noncontrast images from the thoracic inlet to the upper abdomen with coronal and sagittal re-formations. Comparison: 03/19/2019 Findings: Evidence for prior right lower lobectomy. The right hemithorax demonstrates mild basilar interstitial changes and postsurgical scarring along with small pleural effusion. The left hemithorax is well-aerated. No consolidation, significant nodule, or mass lesion is appreciated. Tracheobronchial tree is relatively patent and normal. No pneumothorax. No obvious adenopathy. Mediastinum demonstrates relatively normal thoracic aorta, pulmonary vasculature and heart/pericardium. Limited upper abdomen demonstrates normal bilateral adrenal glands. Musculoskeletal structures are intact and without acute focal osseous abnormality. Impression: 1. Evidence for prior right lower lobectomy with minimal right basilar scarring and interstitial changes. 2. Small right pleural effusion. 3. No adenopathy, consolidation, nodule or mass lesion appreciated. Electronically Signed by Canelo Parker MD 07/22/2019 07:25 A
--- NOTE | 2019-07-22 10:28 | REP ---
CHEST, TWO VIEWS: Two views of the chest performed status post right thoracentesis. There is no pneumothorax. There is decreased right pleural fluid. Otherwise, right basilar, pleural and parenchymal opacity appears unchanged. There is no infiltrate on the left. The heart is normal in size. There are mild degenerative changes of the spine. IMPRESSION: No pneumothorax status post right thoracentesis. Electronically Signed by Mc Shelley MD 07/22/2019 12:54 P
[2019-07-22 10:41] LABS: PH BODY FLUID 7.694 UNITS (NOT ESTABLISHED); SOURCE, BODY FLUID pH PLEURAL
[2019-07-22 10:52] LABS: APPEARANCE, BODY FLUID HAZY (CLEAR); PLEURAL FL COLOR YELLOW (COLORLESS); SOURCE, BODY FLUID PLEURAL
[2019-07-22 11:13] LABS: AMYLASE, BODY FLUID 24 U/L (NOT ESTABLISHED); LDH, BODY FLUID 100 U/L (NOT ESTABLISHED); SOURCE, BODY FLUID AMYLASE PLEURAL; SOURCE, BODY FLUID GLUCOSE PLEURAL; SOURCE, BODY FLUID LDH PLEURAL; SOURCE, BODY FLUID TOT PROTEIN PLEURAL; TOTAL PROTEIN, BODY FLUID 4.2 G/DL (NOT ESTABLISHED)
[2019-07-22 11:40] VITALS: BP 124/72
--- NOTE | 2019-07-22 16:50 | REP ---
ULTRASOUND-GUIDED RIGHT THORACENTESIS The procedure was performed under the direct supervision of Dr. Shelley. The risks and benefits of the procedure were explained to the patient and informed consent was obtained. The right pleural effusion was localized using ultrasound guidance. The skin was prepped and draped in a sterile fashion. 1% lidocaine was used as a local anesthetic. Using ultrasound guidance an 8-Pashto multi side-hole catheter was inserted using trocar technique. 160 ml of yellow fluid was withdrawn and sent to the lab for analysis. The patient tolerated the procedure well and there were no immediate complications. After the appropriate amount of monitored convalescence the patient was discharged from the department. Electronically Signed by FRANCINE Dominguez 07/22/2019 04:39 P Electronically Signed by Mc Shelley MD 07/22/2019 04:42 P
== END ==
LOC: M RAD 06:57
PROVIDERS: ATTEND Thoracic Surgery (Cardiothoracic Vascular Surgery)
DX: C34.31 Malignant neoplasm of lower lobe, right bronchus or lung (principal); Z90.2 Acquired absence of lung [part of]; J90 Pleural effusion, not elsewhere classified

== ENCOUNTER → 2019-07-28 | Outpatient (CLI) | payer BC ==
--- NOTE | 2019-07-28 17:53 | REP ---
CHEST X-RAY: TWO VIEWS. HISTORY: Malignant neoplasm in the lower lobe. COMPARISON CHEST X-RAY: July 22, 2019 FINDINGS: Right hemidiaphragm is elevated. There is some volume loss in the right hemithorax unchanged. Slight blunting of the right pleural angle is visible. These findings are unchanged. The left lung remains clear. Left pleural angles are sharp. There are degenerative changes in the thoracic spine. The heart is not enlarged. IMPRESSION: Slight blunting of the right pleural angles. Stable volume loss right hemithorax. Otherwise no acute disease. Electronically Signed by Otoniel Ulloa MD 07/28/2019 07:38 P
== END ==
LOC: M CLY 08:23
PROVIDERS: ATTEND Thoracic Surgery (Cardiothoracic Vascular Surgery)
DX: C34.31 Malignant neoplasm of lower lobe, right bronchus or lung (principal); J90 Pleural effusion, not elsewhere classified; M51.34 Other intervertebral disc degeneration, thoracic region

== ENCOUNTER → 2019-08-12 | Outpatient (REF) | payer BC | LOC: M SFHCCLAY 11:30 | PROVIDERS: ATTEND Family Medicine | DX: L98.9 Disorder of the skin and subcutaneous tissue, unspecified (principal); D22.5 Melanocytic nevi of trunk ==

== ENCOUNTER → 2019-08-27 | Outpatient (CLI) | payer BC ==
--- NOTE | 2019-08-27 11:20 | REP ---
REASON: Followup. COMPARISON: Multiple, the latest 07/28/2019. Bibasilar opacities are completely unchanged with costophrenic angle and cardiophrenic angle blunting status quo. Left lung clear and stable. No new abnormal opacities. No change in the cardiomediastinal silhouette. No change in the lung tello. IMPRESSION: No evidence of significant change. Electronically Signed by Flex Marie DO 08/27/2019 02:52 P
== END ==
LOC: M CLY 10:11
PROVIDERS: ATTEND Thoracic Surgery (Cardiothoracic Vascular Surgery)
DX: R91.8 Other nonspecific abnormal finding of lung field (principal)

== ENCOUNTER → 2019-09-03 | Outpatient (CLI) | payer BC ==
--- NOTE | 2019-09-03 17:50 | REP ---
SNIFF TEST The procedure was performed under the direct supervision of Dr. Ulloa. The images were reviewed with Dr. Ulloa. There are pleural parenchymal changes on the right. During the stress chest both diaphragms move symmetrically and normally. Impression: There are pleural parenchymal changes on the right. There is no evidence of paradoxical movement. Both diaphragms move normally. 0.1 minutes of fluoroscopy time was utilized for this procedure. Electronically Signed by FRANCINE Dominguez 09/03/2019 02:18 P Electronically Signed by Otoniel Ulloa MD 09/03/2019 05:39 P
== END ==
LOC: M RAD 12:24
PROVIDERS: ATTEND Thoracic Surgery (Cardiothoracic Vascular Surgery)
DX: C34.31 Malignant neoplasm of lower lobe, right bronchus or lung (principal)

== ENCOUNTER → 2020-01-26 | Outpatient (CLI) | payer BC ==
--- NOTE | 2020-01-26 07:36 | REP ---
INDICATION: COPD COMPARISON: 07/22/2019 TECHNIQUE: Axial noncontrast images from the thoracic inlet to the upper abdomen with coronal and sagittal reformations. This CT examination was performed using the following dose reduction techniques: Automated exposure control, adjustment of mA and/or kv according to the patient's size, and use of iterative reconstruction technique. FINDINGS: Evidence for prior right lower lobe resection with mild stable right-sided scarring/interstitial changes. The lung tello are otherwise well aerated. Mild early emphysematous changes are suggested predominately involving the upper lung zones. No consolidation, obvious nodule or mass lesion. No pleural effusion. No pneumothorax. No obvious adenopathy. The mediastinum including thoracic aorta, pulmonary vasculature, and heart/pericardium appear relatively normal/stable. Limited upper abdomen demonstrates normal bilateral adrenal glands. Musculoskeletal structures are intact and without acute osseous abnormality. Old healed right rib fractures again noted. IMPRESSION: 1. Stable postsurgical changes involving the right hemithorax. 2. Mild early COPD/emphysematous changes primarily involving the bilateral upper lung zones. 3. No acute mediastinal or pleuroparenchymal process. <Electronically signed by Canelo Parker > 01/26/20 0732
== END ==
LOC: M RAD 07:07
PROVIDERS: ATTEND Internal Medicine Pulmonary Disease
DX: J44.9 Chronic obstructive pulmonary disease, unspecified (principal); Z98.890 Other specified postprocedural states

== ENCOUNTER → 2020-01-27 | Outpatient (REF) | payer BC ==
[2020-01-27 11:53] LABS: ALBUMIN 4.2 GM/DL (3.2-5.2); ALT/SGPT 34 U/L (12-78); BILIRUBIN,TOTAL 0.4 MG/DL (0.2-1.0); BLOOD UREA NITROGEN 15 MG/DL (7-18); CALCIUM LEVEL 10.2 MG/DL (8.5-10.1); CARBON DIOXIDE LEVEL 31 MEQ/L (21-32); CHLORIDE LEVEL 102 MEQ/L (98-107); CHOLESTEROL LEVEL 215 MG/DL (<200); CHOLESTEROL RISK RATIO 3.524 (<5); CREATININE FOR GFR 0.76 MG/DL (0.55-1.30); GLOMERULAR FILTRATION RATE > 60.0 (>51); GLUCOSE, FASTING 95 MG/DL (70-100); HDL CHOLESTEROL 61 MG/DL (>40); LDL CHOLESTEROL 105 MG/DL (<100); MAGNESIUM LEVEL 2.4 MG/DL (1.8-2.4); NON-HDL-C 154 MG/DL; POTASSIUM SERUM 5.3 MEQ/L (3.5-5.1); SODIUM LEVEL 139 MEQ/L (136-145); TOTAL PROTEIN 7.5 GM/DL (6.4-8.2); TRIGLYCERIDES LEVEL 246 MG/DL (<150)
[2020-01-27 13:14] LABS: HEMOGLOBIN A1c 5.4 %
== END ==
LOC: M SFHCCLAY 07:31
PROVIDERS: ATTEND Family Medicine
DX: E78.5 Hyperlipidemia, unspecified (principal); R73.01 Impaired fasting glucose; K21.9 Gastro-esophageal reflux disease without esophagitis; R94.6 Abnormal results of thyroid function studies; E55.9 Vitamin D deficiency, unspecified

== ENCOUNTER → 2020-06-26 | Outpatient (CLI) | payer BC ==
--- NOTE | 2020-06-26 14:18 | DEXAMM ---
INDICATION: E28.39 MENOPAUSE OVARIAN FAILURE. COMPARISON: 07/19/2015. TECHNIQUE: Bone density was measured using dual-energy x-ray absorptiometry (DEXA). FINDINGS: AP SPINE L1-L4 BMD 1.331 g/cm2 Young Adult T-Score 1.1 Age Matched Z-Score 2.1. LT FEMUR, TOTAL BMD 0.801 g/cm2 Young Adult T-Score -1.6 Age Matched Z-Score -0.9. LT NECK BMD 0.661 g/cm2 Young Adult T-Score -2.7 Age Matched Z-Score -1.6. RT FEMUR, TOTAL BMD 0.827 g/cm2 Young Adult T-Score -1.4 Age Matched Z-Score -0.7. RT NECK BMD 0.721 g/cm2 Young Adult T-Score -2.3 Age Matched Z-Score -1.2. IMPRESSION: There is normal bone density of the spine. There is osteoporosis of the left hip. There is low bone density of the right hip. The density of the spine has decreased 10.9% since the initial exam on 07/19/2015. The density of the left hip has decreased 8.4% since initial exam on 07/19/2015. The density of the right hip has decreased 7.8% since the initial exam on 07/19/2015. FOLLOW-UP: Recommendation for the next bone density exam: 2 years. <Electronically signed by Mc Shelley > 06/26/20 0992
--- NOTE | 2020-06-27 14:28 | REP ---
INDICATION: Z12.31 SCREENING MAMMO. Family history breast cancer age 70 in maternal grandfather. COMPARISON: 11/05/2017, 07/19/2016 and 07/19/2015. TECHNIQUE: MLO and CC views bilateral breasts with tomosynthesis. FINDINGS: Mild to moderate heterogeneous fibroglandular tissue for the most part appears unchanged. There does appear to be a fairly well-defined 1 cm nodule in the upper outer quadrant of the right breast. No architectural distortion is seen. No clustered microcalcifications are seen. The Volpara volumetric breast density pattern is B. IMPRESSION: BIRADS/ACR category 0, incomplete. Smoothly marginated 1 cm nodule upper-outer quadrant right breast. Recommend spot compression views and ultrasound to further evaluate. This patient's Tyrer-Cuzick lifetime breast cancer risk assessment score is 9.0%. This mammogram was interpreted with the aid of an FDA-approved computer-aided detection system. The patient states she had a clinical breast exam in February 2012. The patient letter being requested is M0. RECOMMENDATION: Recommend spot compression views and ultrasound right breast. <Electronically signed by Mc Shelley > 06/27/20 [id number]
== END ==
LOC: M WHC 10:50
PROVIDERS: ATTEND Obstetrics & Gynecology
DX: Z12.31 Encounter for screening mammogram for malignant neoplasm of breast (principal); Z80.3 Family history of malignant neoplasm of breast; N63.11 Unspecified lump in the right breast, upper outer quadrant; E28.39 Other primary ovarian failure; M81.0 Age-related osteoporosis without current pathological fracture

== ENCOUNTER → 2020-07-07 | Outpatient (CLI) | payer BC ==
--- NOTE | 2020-07-07 12:50 | REP ---
INDICATION: ADDL VIEWS/RIGHT BREAST NODULE. Screening mammography recently showed a 1 cm smoothly marginated upper-outer quadrant nodule on the right. COMPARISON: Comparison mammography is from June 26, 2020, November 05, 2017, and July 19, 2016. TECHNIQUE: Magnified focal spot-compression CC, MLO, and mL views of the right breast are obtained. A true mediolateral view with 3D tomography is carried out. Medially and laterally rolled craniocaudal views were obtained. Targeted right breast sonography is performed. This mammogram was interpreted with the aid of an FDA-approved computer-aided detection system. FINDINGS: On diagnostic mammography, scattered fibroglandular elements are seen. The nodular 1 cm areas seen on the screening study compresses away to normal breast parenchymal elements on diagnostic images. A needle biopsy marker clip is seen in the posterior 3rd of the upper-outer quadrant of the right breast as seen on mammography. No other significant mammographic finding. The Volpara volumetric breast density pattern is B. Targeted ultrasound: Targeted right breast sonography is performed through the upper outer quadrant, 9 o'clock to 12 o'clock position. There are several small subcentimeter cysts the largest of which is at 9 o'clock and 5 mm in greatest diameter, 4 cm from the nipple. Heterogeneous fibroglandular background echotexture is seen. No mass or larger cyst is seen. IMPRESSION: BIRADS/ACR category 2 benign right breast mammographic and sonographic findings. The area of concern compresses awaited normal appearing stromal elements. This patient's Tyrer-Cuzick lifetime breast cancer risk assessment score is 9.0%. RECOMMENDATION: Repeat screening mammography recommended 1 year (for women over 40). The patient letter being requested is M1. <Electronically signed by Lamont Ulloa > 07/07/20 [id number]
== END ==
LOC: M WHC 10:48
PROVIDERS: ATTEND Obstetrics & Gynecology
DX: Z12.31 Encounter for screening mammogram for malignant neoplasm of breast (principal)
CPT/HCPCS: 76642; 77065; G0279

== ENCOUNTER → 2020-07-28 | Outpatient (CLI) | payer BC ==
--- NOTE | 2020-07-28 08:13 | REP ---
INDICATION: PERSONAL HX MALIGNANT NEOPLASM BRONCHUS/LUNG COMPARISON: 01/26/2020 TECHNIQUE: Axial noncontrast images from the thoracic inlet to the upper abdomen with coronal and sagittal reformations. This CT examination was performed using the following dose reduction techniques: Automated exposure control, adjustment of mA and/or kv according to the patient's size, and use of iterative reconstruction technique. FINDINGS: Postsurgical changes involving the right hemithorax along with diffuse early emphysematous changes noted. No acute consolidation, significant nodule or mass. Tracheobronchial tree is relatively patent. No effusion. No pneumothorax. Mediastinum demonstrates relatively normal thoracic aorta, pulmonary vasculature, and heart/pericardium. No obvious adenopathy. Musculoskeletal structures are intact and without acute osseous abnormality. Limited upper abdomen demonstrates normal bilateral adrenal glands. IMPRESSION: Chronic nonacute findings as above. Early COPD/emphysematous changes. No acute mediastinal or pleuroparenchymal process appreciated. <Electronically signed by Canelo Parker > 07/28/20 0833
== END ==
LOC: M RAD 07:47
PROVIDERS: ATTEND Internal Medicine Pulmonary Disease
DX: Z85.118 Personal history of other malignant neoplasm of bronchus and lung (principal)

== ENCOUNTER → 2021-01-30 | Outpatient (REF) | payer BC ==
[~2021-01-30] MED LIST changes: +ERGO500029 PO; -VITA50005 PO
[2021-01-30 11:33] LABS: BASO # 0.2 10^3/uL (0.0-0.2); BASO % 1.5 % (0.0-1.0); EOS # 0.2 10^3/uL (0.0-0.5); EOS % 2.4 % (0.0-3.0); HEMATOCRIT 38.4 % (36.0-47.0); HEMOGLOBIN 12.2 g/dl (12.0-15.5); LYMPH # 2.6 10^3/uL (1.5-5.0); LYMPH % 25.7 % (24.0-44.0); MEAN CORPUSCULAR HEMOGLOBIN 29.8 pg (27.0-33.0); MEAN CORPUSCULAR HGB CONC 31.8 g/dl (32.0-36.5); MEAN CORPUSCULAR VOLUME 93.9 fl (80.0-96.0); MONO % 9.9 % (2.0-8.0); NEUTROPHILS # 6.1 10^3/uL (1.5-8.5); NEUTROPHILS % 59.9 % (36.0-66.0); PLATELET COUNT, AUTOMATED 314 10^3/uL (150-450); RED BLOOD COUNT 4.09 10^6/uL (4.00-5.40); WHITE BLOOD COUNT 10.2 10^3/uL (4.0-10.0)
[2021-01-30 11:57] LABS: HEMOGLOBIN A1c 5.4 %
[2021-01-30 12:07] LABS: ALBUMIN 3.8 GM/DL (3.2-5.2); ALT/SGPT 31 U/L (12-78); BILIRUBIN,TOTAL 0.2 MG/DL (0.2-1.0); BLOOD UREA NITROGEN 12 MG/DL (7-18); CALCIUM LEVEL 9.1 MG/DL (8.5-10.1); CARBON DIOXIDE LEVEL 28 MEQ/L (21-32); CHLORIDE LEVEL 108 MEQ/L (98-107); CHOLESTEROL LEVEL 152 MG/DL (<200); CHOLESTEROL RISK RATIO 2.268 (<5); GLOMERULAR FILTRATION RATE > 60.0 (>51); GLUCOSE, FASTING 93 MG/DL (70-100); HDL CHOLESTEROL 67 MG/DL (>40); LDL CHOLESTEROL 66 MG/DL (<100); MAGNESIUM LEVEL 2.2 MG/DL (1.8-2.4); NON-HDL-C 85 MG/DL; POTASSIUM SERUM 5.5 MEQ/L (3.5-5.1); SODIUM LEVEL 138 MEQ/L (136-145); TOTAL PROTEIN 7.2 GM/DL (6.4-8.2); TRIGLYCERIDES LEVEL 95 MG/DL (<150)
== END ==
LOC: M SFHCCLAY 08:00
PROVIDERS: ATTEND Family Medicine
DX: R73.01 Impaired fasting glucose (principal); E78.5 Hyperlipidemia, unspecified; K21.9 Gastro-esophageal reflux disease without esophagitis; R94.6 Abnormal results of thyroid function studies; E55.9 Vitamin D deficiency, unspecified

== ENCOUNTER → 2021-02-28 | Outpatient (CLI) | payer BC ==
--- NOTE | 2021-02-28 10:52 | REP ---
INDICATION: ABN FINDING OF LUNG FIELD COMPARISON: 07/28/2020 TECHNIQUE: Axial noncontrast images from the thoracic inlet to the upper abdomen with coronal and sagittal reformations. This CT examination was performed using the following dose reduction techniques: Automated exposure control, adjustment of mA and/or kv according to the patient's size, and use of iterative reconstruction technique. FINDINGS: Postsurgical changes involving the right hemithorax remains stable. The stable moderate emphysematous changes noted. There is a new tiny 2.5 mm noncalcified density along the periphery of the left lower lobe (series 201; image 68) when compared through 03/19/2019. No acute consolidation, further suspicious nodule or mass. No effusion. No pneumothorax. Tracheobronchial tree is patent. The mediastinum demonstrates stable thoracic aorta, pulmonary vasculature, and heart/pericardium. No significant mediastinal or hilar adenopathy noted. Surrounding musculoskeletal structures without acute osseous abnormality. IMPRESSION: 1. There is a 2.5 mm noncalcified nodule along the periphery of the left lower lobe which is new as compared with 03/19/2019. This likely represents a small benign chronic granuloma/scar and less likely active pathology. Given its size, a follow-up examination at 9-12 months may be warranted. <Electronically signed by Canelo Parker > 02/28/21 [id number]
== END ==
LOC: M RAD 08:12
PROVIDERS: ATTEND Internal Medicine Pulmonary Disease
DX: R91.1 Solitary pulmonary nodule (principal)

== ENCOUNTER → 2021-09-07 | Outpatient (CLI) | payer BC | LOC: M WHC 15:22 | PROVIDERS: ATTEND Nurse Practitioner Family | DX: N64.4 Mastodynia (principal) | CPT/HCPCS: 77066; G0279 ==

== ENCOUNTER → 2021-12-06 | Outpatient (CLI) | payer BC | LOC: M PLAIMG 07:44 | PROVIDERS: ATTEND Internal Medicine Pulmonary Disease | DX: R91.8 Other nonspecific abnormal finding of lung field (principal); Z85.118 Personal history of other malignant neoplasm of bronchus and lung ==

== ENCOUNTER → 2022-03-06 | Outpatient (CLI) | payer BC | LOC: M RAD 06:54 | PROVIDERS: ATTEND Internal Medicine Pulmonary Disease | DX: J43.2 Centrilobular emphysema (principal); R91.8 Other nonspecific abnormal finding of lung field ==

== ENCOUNTER → 2022-04-02 | Outpatient (REF) | payer BC ==
[2022-04-02 11:50] LABS: BASO # 0.1 10^3/uL (0.0-0.2); BASO % 1.6 % (0.0-1.0); EOS # 0.1 10^3/uL (0.0-0.5); EOS % 1.3 % (0.0-3.0); HEMATOCRIT 38.8 % (36.0-47.0); HEMOGLOBIN 12.2 g/dl (12.0-15.5); LYMPH # 1.6 10^3/uL (1.5-5.0); LYMPH % 22.2 % (24.0-44.0); MEAN CORPUSCULAR HEMOGLOBIN 29.5 pg (27.0-33.0); MEAN CORPUSCULAR HGB CONC 31.4 g/dl (32.0-36.5); MEAN CORPUSCULAR VOLUME 93.7 fl (80.0-96.0); MONO # 1.1 10^3/uL (0.0-0.8); MONO % 15.1 % (2.0-8.0); NEUTROPHILS # 4.2 10^3/uL (1.5-8.5); NEUTROPHILS % 59.1 % (36.0-66.0); PLATELET COUNT, AUTOMATED 334 10^3/uL (150-450); RED BLOOD COUNT 4.14 10^6/uL (4.00-5.40); WHITE BLOOD COUNT 7.1 10^3/uL (4.0-10.0)
[2022-04-02 12:20] LABS: MAGNESIUM LEVEL 1.9 MG/DL (1.8-2.4)
[2022-04-02 12:21] LABS: ALBUMIN 3.9 G/DL (3.2-5.2); ALKALINE PHOSPHATASE 88 U/L (46-116); ALT/SGPT 28 U/L (7.0-40); AST/SGOT 24 U/L (<34); BILIRUBIN,TOTAL 0.7 MG/DL (0.3-1.2); BLOOD UREA NITROGEN 14 MG/DL (9-23); CALCIUM LEVEL 9.3 MG/DL (8.5-10.1); CARBON DIOXIDE LEVEL 28 MMOL/L (20-31); CHLORIDE LEVEL 101 MMOL/L (98-107); CHOLESTEROL LEVEL 173 MG/DL (<200); CREATININE FOR GFR 0.67 MG/DL (0.55-1.30); GLOMERULAR FILTRATION RATE > 60.0 (>51); GLUCOSE, FASTING 86 MG/DL (60-100); HDL CHOLESTEROL 59.5 MG/DL (>40); LDL CHOLESTEROL 73.7 MG/DL (<100); NON-HDL-C 114 MG/DL; POTASSIUM SERUM 4.7 MMOL/L (3.5-5.1); SODIUM LEVEL 138 MMOL/L (136-145); TOTAL PROTEIN 6.9 G/DL (5.7-8.2); TRIGLYCERIDES LEVEL 199 MG/DL (<150)
[2022-04-02 12:22] LABS: THYROID STIMULATING HORMONE 0.535 uIU/ML (0.55-4.78)
[2022-04-02 12:57] LABS: HEMOGLOBIN A1c 5.2 % (4.0-6.0)
== END ==
LOC: M SFHCCLAY 09:23
PROVIDERS: ATTEND Family Medicine
DX: R73.01 Impaired fasting glucose (principal); E78.5 Hyperlipidemia, unspecified; K21.9 Gastro-esophageal reflux disease without esophagitis; R94.6 Abnormal results of thyroid function studies; E55.9 Vitamin D deficiency, unspecified

== ENCOUNTER → 2023-04-07 | Outpatient (CLI) | payer BC | LOC: M RAD 14:51 | PROVIDERS: ATTEND Internal Medicine Pulmonary Disease | DX: Z85.118 Personal history of other malignant neoplasm of bronchus and lung (principal) ==

== ENCOUNTER → 2023-12-16 | Outpatient (CLI) | payer BC | LOC: M WHC 15:02 | PROVIDERS: ATTEND Nurse Practitioner | DX: Z12.31 Encounter for screening mammogram for malignant neoplasm of breast (principal) ==

== ENCOUNTER → 2024-05-14 | Outpatient (CLI) | payer OTHER | LOC: M RAD 13:41 | PROVIDERS: ATTEND Internal Medicine Pulmonary Disease | DX: Z12.2 Encounter for screening for malignant neoplasm of respiratory organs (principal); Z87.891 Personal history of nicotine dependence; R91.8 Other nonspecific abnormal finding of lung field ==